=== PATIENT | female | born 1940 | race Caucasian/White ===

== ENCOUNTER 2017-10-18 12:33 | Emergency (ER) | payer MEDICARE ==
--- OUTSIDE RECORDS SUMMARY | 2017-10-18 12:48 | XMS REPORT ---
:1940 External Reference #:[id number] Author Organization [facility] Address [address] [address] Phone [phone] Care Team Providers Name Role Phone Ravin Butler MD Care Team Information Real Estate Investor Unavailable Payers Type Date Identification Numbers Payment Provider Subscriber Commercial Effective: Policy Number: BCBS Medicare [place] 2013 [id number] Group Number: [id number] [address] [address] PayID: [id number] [place] [address] Problems Date Description Provider Status Onset: 12/29/2011 Iron deficiency anemia Ravin Butler MD Active Onset: 12/28/2011 Anemia Ravin Butler MD Active Onset: 12/20/2011 Vitamin D deficiency Ravin Butler MD Active Onset: 06/22/2011 Benign neoplasm of colon Ravin Butler MD Active Onset: 05/27/2008 Depressive disorder Ravin Butler MD Active Onset: 11/20/2007 Localized, 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 Onset: 05/18/2007 Pure hypercholesterolemia Ravin Butler MD Active Onset: 01/22/2007 Rheumatoid arthritis Ravin Butler MD Active Onset: 01/22/2007 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 Onset: 01/22/2007 Gastroesophageal reflux disease Ravin Butler MD Active Onset: 01/22/2007 Obesity Ravin Butler MD Active Onset: 01/22/2007 Benign essential hypertension Ravin Butler MD Active Onset: 04/29/2015 Moderate recurrent major depression Ravin Butler MD Active Social History Type Date Description Comments Marital Status Occupation Retired Nurse ETOH Use Currently consumes alcohol Wine: 2-3, 3d/w Smoking Patient is a former smoker Smoked lightly x 15 years, quit age 40 Daily Caffeine Consumes on average 3 cups of coffee per day General Hx Text Advance directive: HCP packet given 01/16, 01/17 Allergies, Adverse Reactions, Alerts Date Description Reaction Status Severity Comments 05/09/2014 NKDA active Medications Medication Date Status Form Strength Qnty SIG Indications Ordering Provider Tania 01/18/20 Active Soln 125mg/ml 4units inject 1 M06.09 Cathie Basilio Prefill syringe Shmuel ASHRAF Syringe (125 mg) under the skin once a week M06.9 Vitamin B-12 03/11/2016 Active Tablets Sub 500mcg 90tabs 1 by devorah Butler MD every day Biotin 04/29/2015 Active Tablets 5000mcg 1 by Diggerardvandayanna, mouth MD Ravin every day Vitamin 04/29/2015 Active Tablets 1000Unit 90tabs 2 by E55 Luke, D-1000 mouth bid .9 MD Ravin Maximum Strength Bupropion HCL 04/29/2015 Active Tablets ER 300mg 90tabs take one F33 Nidavandayanna, ER (XL) 24HR tablet by .1 MD Ravin mouth every day Ferrous 04/08/2015 Active Tablets 325(65Fe) OTC 1 by D64 Luke, Sulfate mg mouth .9 MD Ravin twice daily w/ food D50.9 Lisinopril-Hydrochlorothiazide 05/22/2014 Active Tablets 20-12.5mg 90tabs take I10 Luke, one MD Ravin tablet by mouth every day 8 Hour Pain Relief 05/02/2012 Active Tablets 650mg 2 po Digiovanna, ER tid prn Ravin Erazo MD arthrit is Omeprazole 05/18/2007 Active Capsules 20mg 90caps use K21. DR Luke every 9 MD Ravin day if needed for heartbu rn Methotrexate Active Tablets 2.5mg take 7 M06. Praful, tablets 9 Shmuel ASHRAF by mouth every week Folic Acid Active Tablets 1000mg 1 by M06. Unknown mouth 9 every day Lidocaine Active Patches 4% apply 1 Praful, patches Shmuel ASHRAF over painful area for 12 hours a day (OTC) Gabapentin Active Capsules 300mg 1 by M06. Praful, mouth 2 9 Shmuel ASHRAF or 3 times a day Amoxicillin 07/21/2017 Hx Tablets 875mg 20tabs 1 by Luke, - mouth MD Ravin 07/31/2017 twice a day for 10 days Benzonatate 07/21/2017 Hx Capsules 200mg 30caps 1 pill Luke, - by MD Ravin 08/20/2017 mouth 3 times a day as needed for cough (swallo w whole) Valacyclovir HCL 01/30/2017 Hx Tablets 1gm 21tabs 1 by R21 Luke, - mouth Nicole, WORM PACKER 02/06/2017 three times a day for 7 days Glucosamine Chondroitin Complex 06/21/2016 Hx Liquid 2 by Luke , Plus MSM Advanced Triple STR - mouth MD Ravin 07/17/2017 every day Doxycycline Hyclate 06/21/2016 Hx Tablets 100mg 14tabs 1 by R05 Luke, - devorah Alicia MD 06/28/2016 twice a day x 7 days (w/ food but not milk) Cephalexin 06/12/2015 Hx Capsules 250mg 21caps 1 pill 595. Ramior, - by Wendy Murphy MD 07/08/2015 mouth 3 times a day for 7 days R30.0 Bupropion HCL 04/08/2015 - Hx Tablets ER 150mg 30tabs 1 by F33.1 Jesseiodella, ER (XL) 04/29/2015 24HR mouth MD Ravin every day Cephalexin 09/22/2014 - Hx Capsules 250mg 21caps 1 pill 595.0 Luke, 09/29/2014 by mouth MD Ravin 3 times a day for 7 days Ferrous 09/15/2014 - Hx Tablets 325(65Fe OTC 1 by 285.9 Luke, Sulfate 04/08/2015 ) mg mouth MD Ravin once daily w/ food 280.9 Sulfamethoxazole/Trimethoprim 09/12/2014 Hx Tablets 800-160mg 10tabs 1 by 595.0 Luke, DS - devorah Alicia MD 09/18/2014 twice a day for 5 days Prednisone 09/11/2014 Hx Tablets 10mg 30tabs 4 782.1 Khan, - pills Tad, DO 11/26/2014 by mouth x 3 days, 3 by mouth x 3 days, 2 by mouth x 3 days, 1 by mouth x 3 days Vitamin D3 Super Strength 05/22/2014 Hx Tablets 2000Unit 1 by 268.9 Lorna Butler MD 11/26/2014 every day Zostavax 05/22/2014 Hx Solution [id number]/0 1 dose Luke, - Rec .65ML MD Ravin 06/01/2014 Vitamin D3 Super Strength 05/09/2014 Hx Tablets 2000Unit 1 by Lorna Butler MD 01/19/2014 every day Lisinopril/Hydrochlorothiazide 11/14/2013 Hx Tablets 20-12.5 30Tabs 1 by Lorna Butler MD 05/21/2014 every day Wellbutrin XL 10/07/2013 Hx Tablets 150mg 30tabs 1 by Luke, - ER 24HR devorah Erazo MD 01/19/2014 every day Nabumetone 05/02/2012 Hx Tablets 500mg 60tabs 1 by Lorna Butler MD 06/12/2015 twice a day (with food) as needed arthtr itis pain Ferrous Sulfate 12/29/2011 Hx Tablets 325(65Fe) 1 po Luke, - mg tiw Ravin Erazo MD 01/19/2014 with food Prednisone Hx Tablets 5mg qd M06.9 Unknown - 09/22/2017 Tylenol Arthritis Pain Hx Tablets 650mg as M15.9 Unknown - ER needed 01/16/2017 pain Naproxen Sodium Hx Capsules 220mg 1 by Unknown - mouth 07/17/2017 q12 hours as needed for pain Immunizations CPT Code Status Date Vaccine Reaction Lot # [id number] Given 01/21/2017 Flulaval Immunization [place] 64471 Given 01/20/2016 Fluzone Highdose Age 65 And KINNEYS Over Preservative & Antibiotic Free 44507 Given 01/07/2015 Fluzone Highdose Age 65 And CRUZ CHOPPER Over Preservative & Antibiotic Free 69923 Given 11/26/2014 Prevnar 13 Pneumococal [id number] Conjugate Vaccine 70161 Given 07/10/2014 Zoster (Zostavax) KINNEYs 12403 Given 01/27/2013 Afluria Or Fluvirin Flu Vac [place]..ACTUALLY Intramuscular DONE 01-26 10150 Given 12/28/2011 Afluria Or Fluvirin Flu Vac Intramuscular 89505 Given 02/02/2011 Afluria Or Fluvirin Flu Vac VIS DATE 10/26/10 Intramuscular 07337 Given 02/04/2010 Afluria Or Fluvirin Flu Vac Intramuscular 97914 Given 03/07/2008 Afluria Or Fluvirin Flu Vac Intramuscular 89630 Given 11/20/2007 Pneumococcal 23 Immunization Adult Or Immunosuppressed Patient 68682 Given 01/22/2007 Afluria Or Fluvirin Flu Vac Intramuscular 08880 Given 01/22/2007 Afluria Or Fluvirin Flu Vac Intramuscular Vital Signs Date Vital Result Comment 09/22/2017 Body Temperature 98.7 F tympanic Weight 174.00 lb Heart Rate 88 /min BP Systolic 104 mmHg BP Diastolic 80 mmHg Respiratory Rate 16 /min Height 61.5 inches 5'1.50" BMI (Body Mass Index) 32.3 kg/m2 08/11/2017 Body Temperature 97.8 F Weight 174.00 lb Heart Rate 66 /min BP Systolic 120 mmHg BP Diastolic 68 mmHg Respiratory Rate 18 /min Height 61.5 inches 5'1.50" O2 % BldC Oximetry 97 % Ra BMI (Body Mass Index) 32.3 kg/m2 07/17/2017 Body Temperature 97.4 F Weight 174.00 lb Heart Rate 70 /min BP Systolic 120 mmHg BP Diastolic 70 mmHg Respiratory Rate 18 /min Height 61.5 inches 5'1.50" BMI (Body Mass Index) 32.3 kg/m2 01/30/2017 Body Temperature 97.7 F Weight 174.00 lb with shoes on Heart Rate 92 /min BP Systolic 108 mmHg BP Diastolic 70 mmHg Height 61.5 inches 5'1.50" BMI (Body Mass Index) 32.3 kg/m2 01/16/2017 Weight 170.00 lb Heart Rate 74 /min BP Systolic 120 mmHg BP Diastolic 70 mmHg Respiratory Rate 18 /min Height 61.5 inches 5'1.50" BMI (Body Mass Index) 31.6 kg/m2 09/27/2016 Weight 174.00 lb Heart Rate 78 /min BP Systolic Recheck 132 mmHg BP Diastolic Recheck 72 mmHg BP Systolic Sitting 124 mmHg BP Diastolic Sitting 78 mmHg BP Systolic Standing 110 mmHg BP Diastolic Standing 72 mmHg Respiratory Rate 17 /min Height 61.5 inches 5'1.50" BMI (Body Mass Index) 32.3 kg/m2 07/08/2016 Weight 165.00 lb Heart Rate 84 /min BP Systolic 120 mmHg BP Diastolic 76 mmHg Respiratory Rate 18 /min Height 61.5 inches 5'1.50" BMI (Body Mass Index) 30.7 kg/m2 06/21/2016 Body Temperature 98.5 F Weight 168.00 lb Heart Rate 92 /min BP Systolic 120 mmHg BP Diastolic 70 mmHg Respiratory Rate 18 /min Height 61.5 inches 5'1.50" O2 % BldC Oximetry 98 % Ra BMI (Body Mass Index) 31.2 kg/m2 03/11/2016 Body Temperature 98.2 F Weight 158.00 lb Heart Rate 98 /min BP Systolic 120 mmHg BP Diastolic 70 mmHg Respiratory Rate 18 /min Height 61.5 inches 5'1.50" O2 % BldC Oximetry 97 % Ra BMI (Body Mass Index) 29.4 kg/m2 01/07/2016 Weight 158.00 lb Heart Rate 74 /min BP Systolic 120 mmHg BP Diastolic 72 mmHg Respiratory Rate 18 /min Height 61.5 inches 5'1.50" BMI (Body Mass Index) 29.4 kg/m2 07/08/2015 Weight 164.00 lb Heart Rate 74 /min BP Systolic 120 mmHg BP Diastolic 80 mmHg Height 62 inches 5'2" BMI (Body Mass Index) 30.0 kg/m2 06/12/2015 Body Temperature 98.1 F Weight 165.00 lb Heart Rate 64 /min BP Systolic 118 mmHg BP Diastolic 60 mmHg Respiratory Rate 18 /min Height 62 inches 5'2" 06/16 BMI (Body Mass Index) 30.2 kg/m2 04/29/2015 Weight 168.00 lb Heart Rate 120 /min BP Systolic 100 mmHg BP Diastolic 60 mmHg Respiratory Rate 18 /min Height 61.6 inches 5'1.60" BMI (Body Mass Index) 31.1 kg/m2 04/08/2015 Weight 173.00 lb Heart Rate 80 /min BP Systolic 102 mmHg BP Diastolic 70 mmHg Respiratory Rate 18 /min Height 61.6 inches 5'1.60" BMI (Body Mass Index) 32.1 kg/m2 11/26/2014 Weight 171.12 lb Heart Rate 84 /min BP Systolic 102 mmHg BP Diastolic 70 mmHg Respiratory Rate 18 /min Height 61.6 inches 5'1.60" BMI (Body Mass Index) 31.7 kg/m2 09/22/2014 Body Temperature 98.6 F Weight 170.50 lb Heart Rate 84 /min BP Systolic 108 mmHg L/Reg BP Diastolic 64 mmHg L/Reg Respiratory Rate 20 /min Height 61.6 inches 5'1.60" BMI (Body Mass Index) 31.6 kg/m2 09/11/2014 Body Temperature 98.4 F Weight 174.00 lb Heart Rate 68 /min BP Systolic 126 mmHg BP Diastolic 72 mmHg Respiratory Rate 18 /min Height 61.6 inches 5'1.60" BMI (Body Mass Index) 32.2 kg/m2 05/22/2014 Weight 173.00 lb Up 3# Heart Rate 92 /min BP Systolic 122 mmHg L/Reg BP Diastolic 78 mmHg L/Reg Respiratory Rate 21 /min Height 61.6 inches 5'1.60" BMI (Body Mass Index) 32.1 kg/m2 02/07/2014 Weight 170.00 lb Heart Rate 78 /min BP Systolic 126 mmHg BP Diastolic 86 mmHg Respiratory Rate 18 /min Height 61.6 inches 5'1.60" O2 % BldC Oximetry 98 % Ra 11/14/2013 Weight 170.31 lb Heart Rate 84 /min BP Systolic 128 mmHg L/Reg BP Diastolic 72 mmHg L/Reg Respiratory Rate 19 /min Height 61.6 inches 5'1.60" 08/20/2013 Weight 171.38 lb Heart Rate 84 /min BP Systolic 128 mmHg BP Diastolic 80 mmHg Respiratory Rate 18 /min Height 61.6 inches 5'1.60" 05/17/2013 Heart Rate 84 /min BP Systolic 124 mmHg BP Diastolic 68 mmHg Respiratory Rate 18 /min Height 61.6 inches 5'1.60" Results Test Date Test Result H/L Range Note CBC Auto Diff 08/08/2017 Abs Basophils 0.1 10^3/uL 0-0.2 Abs Eosinophils 0.1 10^3/uL 0-0.6 Abs Lymphocytes 2.0 10^3/uL 1.0-4.8 Abs Monocytes 1.0 10^3/uL High 0-0.8 Abs Neutrophils 6.7 10^3/uL 1.5-7.7 Abs Nucleated RBC 0 10^3/uL Basophil % 0.8 % 0-2 Eosinophil % 1.1 % 0-6 Granulocyte % 67.8 % 38-83 Hematocrit 39 % 35-47 Hemoglobin 13.1 g/dL 12.0-16.0 Lymphocyte % 20.7 % Low 25-47 Mean Corpuscular HGB Conc 34 g/dL 31-36 Mean Corpuscular Hemoglobin 31 pg 27-31 Mean Corpuscular Volume 93 fL 80-97 Mean Platelet Volume 8.7 um3 7.4-10.4 Monocyte % 9.6 % High 0-7 Nucleated Red Blood Cells % 0.1 1 Platelet Count 388 10^3/uL 150-450 Red Blood Count 4.17 10^6/uL 4.0-5.4 Red Cell Distribution Width 15 % 10.5-15 White Blood Count 9.9 10^3/uL 3.5-10.8 Laboratory test finding 08/08/2017 Creatinine 0.92 mg/dL 0.51-0.95 Glucose 101 mg/dL High 70-100 Potassium 4.3 mmol/L 3.5-5.0 Blood Urea Nitrogen 18 mg/dL 6-24 Alt 17 U/L 7-52 Ast 18 U/L 13-39 CMV Igg/Igm 08/02/2017 Cytomegalovirus IgG Antibody Positive Negative 1 Cytomegalovirus IgM Antibody Negative Negative Iron & Iron Binding Capacity 08/02/2017 % Iron Saturation 29 % 15-55 Iron 101 g/dL 50-212 Total Iron Binding Capacity 354 g/dL 250-450 Transferrin 253 mg/dL 203-362 Unsaturated Iron Binding 253 g/dL Basic (BMP) 07/10/2017 Sodium 142 mmol/L 135-146 2, 3 Potassium 4.3 mmol/L 3.5-5.2 2 Chloride# 105 mmol/L 97-110 2, 4 Carbon Dioxide 28 mmol/L 24-34 2 Glucose 116 mg/dL High 70-105 2 BUN 15 mg/dL 6-26 2 Creatinine 0.9 mg/dL 0.5-1.4 2 Calcium 9.5 mg/dL 8.5-10.2 2 Non Rosenda Egfr 60 Low >60 2, 5 Rosenda Egfr >60 >60 2, 6 Anion Gap 9 mmol/L 5-15 2, 7 Lipid Treatment 07/10/2017 Cholesterol 228 mg/dL High 50-199 2 Triglycerides 183 mg/dL 30-200 2 HDL 76 mg/dL 35-85 2, 8 Chol/ HDL Ratio 3.0 ratio Low 3.7-5.6 2 VLDL 37 mg/dL High 2-29 2 LDL (Calc) 116 mg/dL High 20-99 2, 9 Alt 16 U/L 3-42 2 Ast 15 U/L 8-42 2 Laboratory test finding 07/10/2017 Vitamin D 25 Hydroxy 37 ng/mL 30-100 2, 10 Laboratory test finding 07/10/2017 Ferritin 19.9 ng/ml 11.0-306.0 2 CBC With Auto Diff 07/10/2017 WBC 7.0 K/uL 4.1-11.0 2 RBC 4.35 M/uL 4.00-5.40 2 Hemoglobin 13.5 gm/dL 12.0-16.0 2 Hematocrit 40.9 % 36.0-47.0 2 MCV 94.0 fL 80.0-97.0 2 MCH 31.1 pg 27.0-32.0 2 MCHC 33.1 g/dL 32.0-36.0 2 RDW 16.7 % High 11.5-14.5 2 PLT Count 371 K/ul 140-400 2 MPV 8.4 FL 7.1-10.7 2 Neutrophil 59.5 % 35.0-75.0 2 Lymphocyte 28.5 % 16.0-52.0 2 Monocyte 8.8 % 2.0-10.0 2 Eosinophil 2.5 % 0.0-5.0 2 Basophil 0.7 % 0.0-4.0 2 Abs Neutrophils 4.2 K/uL 2.1-8.0 2 Abs Lymphocytes 2.0 K/uL 0.8-5.5 2 Abs Monocytes 0.6 K/uL 0.1-1.0 2 Abs Eosinophils 0.2 K/uL 0.0-0.5 2 Abs Basophils 0.0 K/uL 0.0-0.3 2 CBC Auto Diff 03/22/2017 Abs Basophils 0.1 10^3/uL 0-0.2 11 Abs Eosinophils 0.1 10^3/uL 0-0.6 11 Abs Lymphocytes 2.2 10^3/uL 1.0-4.8 11 Abs Monocytes 0.8 10^3/uL 0-0.8 11 Abs Neutrophils 4.4 10^3/uL 1.5-7.7 11 Abs Nucleated RBC 0.01 10^3/uL 11 Basophil % 1.0 % 0-2 11 Eosinophil % 1.6 % 0-6 11 Granulocyte % 57.6 % 38-83 11 Hematocrit 40 % 35-47 11 Hemoglobin 13.1 g/dL 12.0-16.0 11 Lymphocyte % 29.2 % 25-47 11 Mean Corpuscular HGB Conc 33 g/dL 31-36 11 Mean Corpuscular Hemoglobin 30 pg 27-31 11 Mean Corpuscular Volume 93 fL 80-97 11 Mean Platelet Volume 8 um3 7.4-10.4 11 Monocyte % 10.6 % High 1-9 11 Nucleated Red Blood Cells % 0.1 1 11 Platelet Count 384 10^3/uL 150-450 11 Red Blood Count 4.32 10^6/uL 4.0-5.4 11 Red Cell Distribution Width 16 % High 10.5-15 11 White Blood Count 7.7 10^3/uL 3.5-10.8 11 Laboratory test finding 03/22/2017 Albumin 4.2 g/dL 3.2-5.2 11 Albumin/Globulin Ratio 2.0 1 1-3 11 Alkaline Phosphatase 77 U/L 34-104 11 Alt 18 U/L 7-52 11 Anion Gap 8 mmol/L 2-11 11 Ast 21 U/L 13-39 11 BUN/Creatinine Ratio 22.7 1 High 8-20 11 Blood Urea Nitrogen 20 mg/dL 6-24 11 C Reactive Protein 3.22 mg/L < 5.00 11, 12 Calcium 9.9 mg/dL 8.6-10.3 11 Chloride 104 mmol/L 101-111 11 Co2 Carbon Dioxide 27 mmol/L 22-32 11 Creatinine 0.88 mg/dL 0.51-0.95 11 Egfr 80.3 1 >60 11 Egfr Non- 62.5 1 >60 11 Erythrocyte Sed Rate 25 mm/Hr 0-40 11 Globulin 2.1 g/dL 2-4 11 Glucose 100 mg/dL 70-100 11 Potassium 4.2 mmol/L 3.5-5.0 11 Sodium 139 mmol/L 133-145 11 Total Bilirubin 0.30 mg/dL 0.2-1.0 11 Total Protein 6.3 g/dL Low 6.4-8.9 11 Laboratory test finding 01/10/2017 Albumin 3.8 g/dL 3.2-5.2 Alkaline Phosphatase 78 U/L 34-104 Alt 16 U/L 7-52 Ast 18 U/L 13-39 Blood Urea Nitrogen 10 mg/dL 6-24 C Reactive Protein 8.68 mg/L High < 5.00 13 Calcium 9.3 mg/dL 8.6-10.3 Chloride 105 mmol/L 101-111 Co2 Carbon Dioxide 26 mmol/L 22-32 Creatinine 0.77 mg/dL 0.51-0.95 Egfr Non- 72.9 1 >60 Erythrocyte Sed Rate 40 mm/Hr 0-40 Globulin 2.1 g/dL 2-4 Glucose 94 mg/dL 70-100 Potassium 4.1 mmol/L 3.5-5.0 Sodium 138 mmol/L 133-145 14 Total Bilirubin 0.20 mg/dL 0.2-1.0 Total Protein 5.9 g/dL Low 6.4-8.9 CBC Auto Diff 01/10/2017 Abs Basophils 0.1 10^3/uL 0-0.2 Abs Eosinophils 0.1 10^3/uL 0-0.6 Abs Lymphocytes 1.8 10^3/uL 1.0-4.8 Abs Monocytes 0.8 10^3/uL 0-0.8 Abs Neutrophils 5.9 10^3/uL 1.5-7.7 Abs Nucleated RBC 0 10^3/uL Basophil % 1.3 % 0-2 Eosinophil % 1.2 % 0-6 Granulocyte % 67.7 % 38-83 Hematocrit 31 % Low 35-47 Hemoglobin 10.4 g/dL Low 12.0-16.0 Lymphocyte % 21.1 % Low 25-47 Mean Corpuscular HGB Conc 33 g/dL 31-36 Mean Corpuscular Hemoglobin 30 pg 27-31 Mean Corpuscular Volume 91 fL 80-97 Mean Platelet Volume 8 um3 7.4-10.4 Monocyte % 8.7 % 1-9 Nucleated Red Blood Cells % 0 1 Platelet Count 398 10^3/uL 150-450 Red Blood Count 3.46 10^6/uL Low 4.0-5.4 Red Cell Distribution Width 18 % High 10.5-15 White Blood Count 8.7 10^3/uL 3.5-10.8 Iron & Iron Binding Capacity 01/10/2017 % Iron Saturation 6 % Low 15-55 Iron 21 g/dL Low 50-212 Total Iron Binding Capacity 365 g/dL 250-450 Unsaturated Iron Binding 344 g/dL Basic (BMP) 01/10/2017 Sodium 143 mmol/L 135-146 15, 16 Potassium 4.2 mmol/L 3.5-5.2 15 Chloride# 107 mmol/L 97-110 15, 17 Carbon Dioxide 26 mmol/L 24-34 15 Glucose 92 mg/dL 70-105 15 Creatinine 0.8 mg/dL 0.5-1.4 15 Calcium 9.2 mg/dL 8.5-10.2 15 Non Rosenda Egfr >60 >60 15, 18 Rosenda Egfr >60 >60 15, 19 Anion Gap 10 mmol/L 7-16 15, 20 BUN 11 mg/dL 6-26 15 Lipid Treatment 01/10/2017 Cholesterol 195 mg/dL 50-199 15 Triglycerides 165 mg/dL 30-200 15 HDL 70 mg/dL 35-85 15, 21 Chol/ HDL Ratio 2.8 ratio Low 3.7-5.6 15 VLDL 33 mg/dL High 2-29 15 LDL (Calc) 92 mg/dL 20-99 15, 22 Alt 15 U/L 3-42 15 Ast 16 U/L 8-42 15 Laboratory test finding 01/10/2017 Vit D25oh 44 ng/mL 31-100 15 CBC With Auto Diff 01/10/2017 WBC 8.5 K/uL 4.1-11.0 15 RBC 3.37 M/uL Low 4.00-5.40 15 Hemoglobin 10.3 gm/dL Low 12.0-16.0 15 Hematocrit 31.3 % Low 36.0-47.0 15 MCV 92.8 fL 80.0-97.0 15 MCH 30.5 pg 27.0-32.0 15 MCHC 32.9 g/dL 32.0-36.0 15 RDW 18.0 % High 11.5-14.5 15 PLT Count 382 K/ul 140-400 15 MPV 7.9 FL 7.1-10.7 15 Neutrophil 64.2 % 35.0-75.0 15 Lymphocyte 23.6 % 16.0-52.0 15 Monocyte 9.9 % 2.0-10.0 15 Eosinophil 1.7 % 0.0-5.0 15 Basophil 0.6 % 0.0-4.0 15 Abs Neutrophils 5.5 K/uL 2.1-8.0 15 Abs Lymphocytes 2.0 K/uL 0.8-5.5 15 Abs Monocytes 0.8 K/uL 0.1-1.0 15 Abs Eosinophils 0.1 K/uL 0.0-0.5 15 Abs Basophils 0.1 K/uL 0.0-0.3 15 Laboratory test finding 01/10/2017 Ferritin 10.2 ng/ml Low 11.0-306.0 15 TSH 0.84 uIU/mL 0.35-4.94 15 Basic (BMP) 09/27/2016 Sodium 144 mmol/L 135-146 23 Potassium 4.1 mmol/L 3.5-5.2 Chloride# 104 mmol/L 97-110 24 Carbon Dioxide 30 mmol/L 24-34 Glucose 88 mg/dL 70-105 BUN 20 mg/dL 6-26 Creatinine 0.7 mg/dL 0.5-1.4 Calcium 9.7 mg/dL 8.5-10.2 Non Rosenda Egfr >60 >60 25 Rosenda Egfr >60 >60 26 Anion Gap 14 mmol/L 7-16 27 CBC With Auto Diff 09/27/2016 WBC 7.6 K/uL 4.1-11.0 RBC 3.59 M/uL Low 4.00-5.40 Hemoglobin 10.3 gm/dL Low 12.0-16.0 Hematocrit 32.0 % Low 36.0-47.0 MCV 89.2 fL 80.0-97.0 MCH 28.7 pg 27.0-32.0 MCHC 32.2 g/dL 32.0-36.0 RDW 17.0 % High 11.5-14.5 PLT Count 436 K/ul High 140-400 Neutrophil 60.4 % 35.0-75.0 Lymphocyte 25.9 % 16.0-52.0 Monocyte 10.9 % High 2.0-10.0 Eosinophil 2.0 % 0.0-5.0 Basophil 0.8 % 0.0-4.0 Abs Neutrophils 4.6 K/uL 2.1-8.0 Abs Lymphocytes 2.0 K/uL 0.8-5.5 Abs Monocytes 0.8 K/uL 0.1-1.0 Abs Eosinophils 0.2 K/uL 0.0-0.5 Abs Basophils 0.1 K/uL 0.0-0.3 Basic (BMP) 07/01/2016 Sodium 142 mmol/L 135-146 28, 29 Potassium 4.2 mmol/L 3.5-5.2 28 Chloride# 104 mmol/L 97-110 28, 30 Carbon Dioxide 28 mmol/L 24-34 28 Glucose 96 mg/dL 70-105 28 BUN 21 mg/dL 6-26 28 Creatinine 0.9 mg/dL 0.5-1.4 28 Calcium 9.7 mg/dL 8.5-10.2 28 Non Rosenda Egfr >60 >60 28, 31 Rosenda Egfr >60 >60 28, 32 Anion Gap 14 mmol/L 7-16 28, 33 Laboratory test finding 07/01/2016 TSH 1.12 uIU/mL 0.35-4.94 28 Lipid Treatment 07/01/2016 Cholesterol 235 mg/dL High 50-199 28 Triglycerides 164 mg/dL 30-200 28 HDL 76 mg/dL 35-85 28, 34 Chol/ HDL Ratio 3.1 ratio Low 3.7-5.6 28 VLDL 33 mg/dL High 2-29 28 LDL (Calc) 126 mg/dL High 20-99 28, 35 Alt 13 U/L 3-42 28 Ast 19 U/L 8-42 28 Laboratory test finding 07/01/2016 Vit D,25 Hydroxy 39 ng/mL 31-100 28 CBC With Auto Diff 07/01/2016 WBC 6.9 K/uL 4.1-11.0 28 RBC 3.87 M/uL Low 4.00-5.40 28 Hemoglobin 11.1 gm/dL Low 12.0-16.0 28 Hematocrit 34.6 % Low 36.0-47.0 28 MCV 89.6 fL 80.0-97.0 28 MCH 28.7 pg 27.0-32.0 28 MCHC 32.1 g/dL 32.0-36.0 28 RDW 17.6 % High 11.5-14.5 28 PLT Count 387 K/ul 140-400 28 Neutrophil 63.1 % 35.0-75.0 28 Lymphocyte 22.5 % 16.0-52.0 28 Monocyte 11.3 % High 2.0-10.0 28 Eosinophil 1.8 % 0.0-5.0 28 Basophil 1.3 % 0.0-4.0 28 Abs Neutrophils 4.4 K/uL 2.1-8.0 28 Abs Lymphocytes 1.6 K/uL 0.8-5.5 28 Abs Monocytes 0.8 K/uL 0.1-1.0 28 Abs Eosinophils 0.1 K/uL 0.0-0.5 28 Abs Basophils 0.1 K/uL 0.0-0.3 28 Laboratory test finding 07/01/2016 Ferritin 8.0 ng/ml Low 11.0-306.0 28 Vitamin B12 1285 pg/mL High 180-914 28 Basic (BMP) 12/31/2015 Sodium 142 mmol/L 134-142 36 Potassium 4.3 mmol/L 3.5-5.2 36 Chloride 104 mmol/L 97-109 36 Carbon Dioxide 30 mmol/L 24-34 36 Glucose 80 mg/dL 70-105 36 BUN 16 mg/dL 6-26 36 Creatinine 0.9 mg/dL 0.5-1.4 36 Calcium 9.4 mg/dL 8.5-10.2 36 Anion Gap 12 mmol/L 6-14 36 Non Rosenda Egfr >60 >60 36, 37 Rosenda Egfr >60 >60 36, 38 Lipid Treatment 12/31/2015 Cholesterol 237 mg/dL High 50-199 36 Triglycerides 182 mg/dL 30-200 36 HDL 91 mg/dL High 35-85 36, 39 Chol/ HDL Ratio 2.6 ratio Low 3.7-5.6 36 VLDL 36 mg/dL High 2-29 36 LDL (Calc) 110 mg/dL High 20-99 36, 40 Alt 19 U/L 3-42 36 Ast 15 U/L 8-42 36 Laboratory test finding 12/31/2015 Vit D,25 Hydroxy 46 ng/mL 31-100 36 CBC With Auto Diff 07/01/2015 WBC 7.2 K/uL 4.1-11.0 41 RBC 4.76 M/uL 4.00-5.40 41 Hemoglobin 13.1 gm/dL 12.0-16.0 41 Hematocrit 41.3 % 36.0-47.0 41 MCV 86.6 fL 80.0-97.0 41 MCH 27.4 pg 27.0-32.0 41 MCHC 31.7 g/dL Low 32.0-36.0 41 RDW 19.8 % High 11.5-14.5 41 PLT Count 411 K/ul High 140-400 41 Neutrophil 61.9 % 35.0-75.0 41 Lymphocyte 25.7 % 16.0-52.0 41 Monocyte 9.4 % 2.0-10.0 41 Eosinophil 2.3 % 0.0-5.0 41 Basophil 0.7 % 0.0-4.0 41 Abs Neutrophils 4.5 K/uL 2.1-8.0 41 Abs Lymphocytes 1.9 K/uL 0.8-5.5 41 Abmon 0.7 K/uL 0.1-1.0 41 Abs Eosinophils 0.2 K/uL 0.0-0.5 41 Abs Basophils 0.0 K/uL 0.0-0.3 41 Laboratory test finding 07/01/2015 Ferritin 11.5 ng/ml 11.0-306.0 41 Basic (BMP) 07/01/2015 Sodium 142 mmol/L 134-142 41 Potassium 4.5 mmol/L 3.5-5.2 41 Chloride 104 mmol/L 97-109 41 Carbon Dioxide 29 mmol/L 24-34 41 Glucose 100 mg/dL 70-105 41 BUN 14 mg/dL 6-26 41 Creatinine 0.8 mg/dL 0.5-1.4 41 Calcium 9.7 mg/dL 8.5-10.2 41 Anion Gap 14 mmol/L 6-14 41 Non Rosenda Egfr >60 >60 41, 42 Rosenda Egfr >60 >60 41, 43 Lipid Treatment 07/01/2015 Cholesterol 223 mg/dL High 50-199 41 Triglycerides 215 mg/dL High 30-200 41 HDL 84 mg/dL 35-85 41, 44 Chol/ HDL Ratio 2.7 ratio Low 3.7-5.6 41 VLDL 43 mg/dL High 2-29 41 LDL (Calc) 96 mg/dL 20-99 41, 45 Alt 16 U/L 3-42 41 Ast 16 U/L 8-42 41 Laboratory test 07/01/2015 Vit D,25 Hydroxy 40 ng/mL 31-100 41 finding Laboratory test 06/12/2015 Urine Culture Microbiology res <SEE 46 finding NOTE> BMP (Basic) 03/31/2015 Glucose 103 mg/dL 74-106 BUN 13 mg/dL 7-18 Creatinine 0.8 mg/dL 0.6-1.3 Glom Filtration Rate, Estimate >60 mL/min >60 If >60 mL/min >60 47 BUN/Creat 16.2 ratio Sodium 138 mmol/L 136-145 Potassium 3.8 mmol/L 3.5-5.1 Chloride 104 mmol/L 98-107 Carbon Dioxide 24 mmol/L 21-32 Anion Gap 10 mEq/L 8-16 Calcium 8.4 mg/dL Low 8.5-10.1 CBC W/Automated Diff 03/31/2015 White Blood Count 7.1 K/uL 3.1-10.7 Red Blood Count 3.91 M/uL 3.90-5.40 Hemoglobin 8.4 gm/dL Low 11.6-15.8 Hematocrit 28.5 % Low 36.0-46.1 Mean Cell Volume 72.9 fl Low 80.9-99.0 Mean Corpuscular HGB 21.5 pg Low 25.9-32.7 Mean Corpuscular HGB Conc 29.5 g/dL Low 30.8-34.3 Platelet Count 486 K/uL High 155-360 Red Cell Distri Width SD 55.2 fl High 3-47 Red Cell Distri Width %CV 21.6 % High 11.7-14.4 Mean Platelet Volume 9.6 fL 8.9-12.4 Neut% 62.8 % 40.4-72.8 Lymph % 26.0 % 17.0-46.1 [place] % 8.8 % 4.3-13.2 Eo% 2.0 % 0.0-6.6 Bas% 0.4 % 0.0-1.1 Neut# 4.47 K/uL 1.0-7.0 Lymph # 1.85 K/uL 1.8-7.0 [place] # 0.63 K/uL 0.3-0.9 Eos # 0.14 K/uL 0.0-0.5 Baso # 0.03 K/uL 0.0-0.1 LDL Cholesterol Profile 03/31/2015 Cholesterol 247 mg/dL High <200 48 Triglycerides 357 mg/dL High <150 49 HDL Cholesterol 68 mg/dL >40 50 LDL-Cholesterol 108 mg/dL < 100 51 Laboratory test finding 03/31/2015 Magnesium 1.9 mg/dL 1.8-2.4 CBC With Auto Diff 03/31/2015 White Blood Count 7.1 K/uL 3.1-10.7 Red Blood Count 3.91 M/uL 3.90-5.40 Hemoglobin 8.4 gm/dL Low 11.6-15.8 Hematocrit 28.5 % Low 36.0-46.1 Mean Cell Volume 72.9 fl Low 80.9-99.0 Mean Corpuscular HGB 21.5 pg Low 25.9-32.7 Mean Corpuscular HGB Conc 29.5 g/dL Low 30.8-34.3 Platelet Count 486 K/uL High 155-360 Red Cell Distri Width SD 55.2 fl High 3-47 Red Cell Distri Width %CV 21.6 % High 11.7-14.4 Mean Platelet Volume 9.6 fL 8.9-12.4 Neut% 62.8 % 40.4-72.8 Lymph % 26.0 % 17.0-46.1 [place] % 8.8 % 4.3-13.2 Eo% 2.0 % 0.0-6.6 Bas% 0.4 % 0.0-1.1 Neut# 4.47 K/uL 1.0-7.0 Lymph # 1.85 K/uL 1.8-7.0 [place] # 0.63 K/uL 0.3-0.9 Eos # 0.14 K/uL 0.0-0.5 Baso # 0.03 K/uL 0.0-0.1 Laboratory test finding 03/31/2015 Ferritin 4 ng/mL Low 8-252 Magnesium 1.9 mg/dL 1.8-2.4 Liver Function Tests 03/31/2015 Total Protein 6.8 g/dL 6.4-8.2 Albumin 3.4 g/dL 3.4-5.0 Globulin 3.4 g/dL 1.9-4.3 Alb/Glob 1.0 ratio Bilirubin,Total 0.3 mg/dL 0.2-1.0 Bilirubin,Direct < 0.1 mg/dL 0.0-0.2 Bilirubin,Indirect 0.2 mg/dL 0.0-0.9 Sgot/Ast 16 U/L 15-37 SGPT/Alt 24 U/L 12-78 Alkaline Phosphatase 94 U/L 45-117 Basic Metabolic Panel 03/31/2015 Glucose 103 mg/dL 74-106 BUN 13 mg/dL 7-18 Creatinine 0.8 mg/dL 0.6-1.3 Glom Filtration Rate, Estimate >60 mL/min >60 If >60 mL/min >60 52 BUN/Creat 16.2 ratio Sodium 138 mmol/L 136-145 Potassium 3.8 mmol/L 3.5-5.1 Chloride 104 mmol/L 98-107 Carbon Dioxide 24 mmol/L 21-32 Anion Gap 10 mEq/L 8-16 Calcium 8.4 mg/dL Low 8.5-10.1 Liver Function Tests 03/31/2015 Total Protein 6.8 g/dL 6.4-8.2 Albumin 3.4 g/dL 3.4-5.0 Globulin 3.4 g/dL 1.9-4.3 Alb/Glob 1.0 ratio Bilirubin,Total 0.3 mg/dL 0.2-1.0 Bilirubin,Direct < 0.1 mg/dL 0.0-0.2 Bilirubin,Indirect 0.2 mg/dL 0.0-0.9 Sgot/Ast 16 U/L 15-37 SGPT/Alt 24 U/L 12-78 Alkaline Phosphatase 94 U/L 45-117 Laboratory test finding 03/31/2015 Ferritin 4 ng/mL Low 8-252 LDL Cholesterol Profile 03/31/2015 Cholesterol 247 mg/dL High <200 53 Triglycerides 357 mg/dL High <150 54 HDL Cholesterol 68 mg/dL >40 55 LDL-Cholesterol 108 mg/dL < 100 56 Lipid Treatment 11/19/2014 Cholesterol 228 mg/dL High 50-199 57 Triglycerides 153 mg/dL 30-200 57 HDL 67 mg/dL 35-85 57, 58 Chol/ HDL Ratio 3.4 ratio Low 3.7-5.6 57 VLDL 31 mg/dL High 2-29 57 LDL (Calc) 130 mg/dL High 20-99 57, 59 Alt 12 U/L 3-42 57 Ast 14 U/L 8-42 57 Basic (BMP) 11/19/2014 Sodium 140 mmol/L 134-142 57 Potassium 4.5 mmol/L 3.5-5.2 57 Chloride 105 mmol/L 97-109 57 Carbon Dioxide 26 mmol/L 24-34 57 Glucose 105 mg/dL 70-105 57 BUN 16 mg/dL 6-26 57 Creatinine 0.7 mg/dL 0.5-1.4 57 Calcium 9.7 mg/dL 8.5-10.2 57 Anion Gap 14 mmol/L 6-14 57 Non Rosenda Egfr >60 >60 57, 60 Rosenda Egfr >60 >60 57, 61 Laboratory test finding 11/19/2014 Magnesium 2.0 mg/dL 1.5-2.7 57 CBC With Auto Diff 11/19/2014 WBC 6.6 K/uL 4.1-11.0 57 RBC 4.15 M/uL 4.00-5.40 57 Hemoglobin 9.9 gm/dL Low 12.0-16.0 57 Hematocrit 31.3 % Low 36.0-47.0 57 MCV 75.4 fL Low 80.0-97.0 57 MCH 23.9 pg Low 27.0-32.0 57 MCHC 31.6 g/dL Low 32.0-36.0 57 RDW 24.6 % High 11.5-14.5 57 PLT Count 373 K/ul 140-400 57 Neutrophil 59.9 % 35.0-75.0 57 Lymphocyte 28.1 % 16.0-52.0 57 Monocyte 9.1 % 2.0-10.0 57 Eosinophil 2.2 % 0.0-5.0 57 Basophil 0.7 % 0.0-4.0 57 Abs Neutrophils 4.0 K/uL 2.1-8.0 57 Abs Lymphocytes 1.9 K/uL 0.8-5.5 57 Abmon 0.6 K/uL 0.1-1.0 57 Abs Eosinophils 0.1 K/uL 0.0-0.5 57 Abs Basophils 0.0 K/uL 0.0-0.3 57 Laboratory test finding 11/19/2014 Ferritin 4.1 ng/ml Low 11.0-306.0 57 Vitamin B12 368 pg/mL 180-914 57 Laboratory test 09/22/2014 Urine Culture Microbiology res <SEE 62 finding NOTE> CBC With Auto Diff 09/11/2014 WBC 8.6 K/uL 4.1-11.0 RBC 4.29 M/uL 4.00-5.40 Hemoglobin 8.9 gm/dL Low 12.0-16.0 Hematocrit 29.3 % Low 36.0-47.0 MCV 68.2 fL Low 80.0-97.0 MCH 20.8 pg Low 27.0-32.0 MCHC 30.5 g/dL Low 32.0-36.0 RDW 21.8 % High 11.5-14.5 PLT Count 464 K/ul High 140-400 Neutrophil 72.4 % 35.0-75.0 Lymphocyte 17.5 % 16.0-52.0 Monocyte 8.3 % 2.0-10.0 Eosinophil 1.0 % 0.0-5.0 Basophil 0.8 % 0.0-4.0 Abs Neutrophils 6.2 K/uL 2.1-8.0 Abs Lymphocytes 1.5 K/uL 0.8-5.5 Abmon 0.7 K/uL 0.1-1.0 Abs Eosinophils 0.1 K/uL 0.0-0.5 Abs Basophils 0.1 K/uL 0.0-0.3 Laboratory test finding 09/11/2014 Esr 36 mm/hr High 0-20 Comprehensive Metabolic (CMP) 09/11/2014 Sodium 137 mmol/L 134-142 Potassium 4.7 mmol/L 3.5-5.2 Chloride 102 mmol/L 97-109 Carbon Dioxide 26 mmol/L 24-34 Glucose 105 mg/dL 70-105 BUN 22 mg/dL 6-26 Creatinine 0.8 mg/dL 0.5-1.4 Calcium 9.4 mg/dL 8.5-10.2 Total Protein 6.7 g/dL 6.0-8.0 Albumin 4.3 g/dL 3.6-4.9 Globulin 2.4 g/dL 2.0-3.5 A/G Ratio 1.8 Ratio 1.0-2.2 Total Bilirubin 0.2 mg/dL 0.1-1.3 Alkaline Phosphatase 101 U/L 24-140 Alt 11 U/L 3-42 Ast 15 U/L 8-42 Anion Gap 14 mmol/L 6-14 Rosenda Egfr >60 >60 63 Non Rosenda Egfr >60 >60 64 Laboratory test finding 09/11/2014 Urine Culture Microbiology res <SEE 65 NOTE> Basic (BMP) 05/15/2014 Sodium 138 mmol/L 134-142 66 Potassium 4.7 mmol/L 3.5-5.2 66 Chloride 103 mmol/L 97-109 66 Carbon Dioxide 26 mmol/L 24-34 66 Glucose 106 mg/dL High 70-105 66 BUN 18 mg/dL 6-26 66 Creatinine 0.8 mg/dL 0.5-1.4 66 Calcium 9.8 mg/dL 8.5-10.2 66 Anion Gap 14 mmol/L 6-14 66 Non Rosenda Egfr >60 >60 66, 67 Rosenda Egfr >60 >60 66, 68 CBC With Auto Diff 05/15/2014 WBC 6.9 K/uL 4.1-11.0 66 RBC 4.51 M/uL 4.00-5.40 66 Hemoglobin 9.3 gm/dL Low 12.0-16.0 66 Hematocrit 30.6 % Low 36.0-47.0 66 MCV 67.9 fL Low 80.0-97.0 66 MCH 20.6 pg Low 27.0-32.0 66 MCHC 30.4 g/dL Low 32.0-36.0 66 RDW 19.8 % High 11.5-14.5 66 PLT Count 481 K/ul High 140-400 66 Neutrophil 55.3 % 35.0-75.0 66 Lymphocyte 33.1 % 16.0-52.0 66 Monocyte 8.3 % 2.0-10.0 66 Eosinophil 2.0 % 0.0-5.0 66 Basophil 1.3 % 0.0-4.0 66 Abs Neutrophils 3.8 K/uL 2.1-8.0 66 Abs Lymphocytes 2.3 K/uL 0.8-5.5 66 Abmon 0.6 K/uL 0.1-1.0 66 Abs Eosinophils 0.1 K/uL 0.0-0.5 66 Abs Basophils 0.1 K/uL 0.0-0.3 66 Laboratory test finding 05/15/2014 Ferritin 4.3 ng/ml Low 11.0-306.0 66 Lipid Treatment 05/15/2014 Cholesterol 247 mg/dL High 50-199 66 Triglycerides 160 mg/dL 30-200 66 HDL 72 mg/dL 35-85 66, 69 Chol/ HDL Ratio 3.4 ratio Low 3.7-5.6 66 VLDL 32 mg/dL High 2-29 66 LDL (Calc) 143 mg/dL High 20-99 66, 70 Alt 10 U/L 3-42 66 Ast 12 U/L 8-42 Laboratory test finding 05/15/2014 Vit D,25 Hydroxy 32 ng/mL 31-100 66 Laboratory test finding 11/07/2013 % Baso. 0.9 % 0.0-2.0 % Eos. 1.9 % 0.0-4.0 % Lymph 32 % 20-44 % [place] 7.3 % 2.0-10.0 % Hao 58 % 50-70 Absolute Baso. 0.1 K/ul 0.0-0.3 Absolute Eos. 0.1 K/ul 0.0-0.5 Absolute Lymph. 2.5 K/ul 0.8-4.8 Absolute [place]. 0.6 K/ul 0.1-1.0 Absolute Hao. 4.61 K/ul 2.05-7.63 Alt 18.0 U/L 9.0-52.0 Ast 17.0 U/L 14.0-36.0 BUN 16.0 mg/dL 7.0-18.0 BUN/Creat Ratio 22.9 ratio High 12.0-20.0 Calcium 9.8 mg/dL 8.7-10.5 Chloride 105.0 mmol/L 98.0-107.0 Co2 25.0 mmol/L 22.0-30.0 Creatinine-Serum 0.7 mg/dL 0.7-1.2 Ferritin 5.3 ng/mL 3-105 71 Glucose 103.0 mg/dL 75.0-110.0 HCT 36.5 % Low 37.0-51.0 HGB 11.4 Gm/dl Low 12.0-16.0 MCH 25.2 pg Low 26.0-32.0 MCHC 31.2 g/dL 31.0-36.0 MCV 81.0 Fl 80.0-97.0 MPV 7.0 fL 6.0-10.0 PLT 415 K/ul 140-440 Potasium 4.3 mmol/L 3.6-5.0 RBC 4.5 M/ul 4.2-6.3 RDW 14.5 % 11.5-14.5 Sodium 142.0 mmil/L 137.0-145.0 Vitamin D 30.6 ng/mL 30.0-100.0 WBC 8.0 K/ul 4.1-10.9 eGFR 87.4 Lipid Panel 11/07/2013 Chol/HDL Ratio 3.6 ratio Cholesterol 257.0 mg/dL High 50.0-199.0 HDL 71.0 mg/dL 29.0-86.0 LDL, Calculated 133.6 mg/dL High 20.0-129.0 Triglycerides 262.0 mg/dL High 30.0-249.0 vLDL 52.4 ng/dL Laboratory test finding 05/10/2013 % Baso. 1.4 % 0.0-2.0 % Eos. 2.9 % 0.0-4.0 % Lymph 31 % 20-44 % [place] 9.1 % 2.0-10.0 % Hao 55 % 50-70 Absolute Baso. 0.1 K/ul 0.0-0.3 Absolute Eos. 0.2 K/ul 0.0-0.5 Absolute Lymph. 2.3 K/ul 0.8-4.8 Absolute [place]. 0.7 K/ul 0.1-1.0 Absolute Hao. 3.97 K/ul 2.05-7.63 Alt 14.0 U/L 9.0-52.0 Ast 17.0 U/L 14.0-36.0 BUN 11.0 mg/dL 7.0-18.0 BUN/Creat Ratio 13.8 ratio 12.0-20.0 Calcium 10.3 mg/dL 8.7-10.5 Chloride 105.0 mmol/L 98.0-107.0 Co2 26.0 mmol/L 22.0-30.0 Creatinine-Serum 0.8 mg/dL 0.7-1.2 Ferritin 6.7 ng/mL 3-105 72 Glucose 103.0 mg/dL 75.0-110.0 HCT 37.9 % 37.0-51.0 HGB 12.3 Gm/dl 12.0-16.0 MCH 28.6 pg 26.0-32.0 MCHC 32.4 g/dL 31.0-36.0 MCV 88.4 Fl 80.0-97.0 MPV 6.7 fL 6.0-10.0 Magnesium 2.1 1.7-2.3 PLT 400 K/ul 140-440 Potasium 4.3 mmol/L 3.6-5.0 RBC 4.3 M/ul 4.2-6.3 RDW 14.7 % High 11.5-14.5 Sodium 143.0 mmil/L 137.0-145.0 Vitamin D 22.3 ng/mL Low 30.0-100.0 WBC 7.2 K/ul 4.1-10.9 eGFR 74.9 Lipid Panel 05/10/2013 Chol/HDL Ratio 3.3 ratio Cholesterol 256.0 mg/dL High 50.0-199.0 HDL 78.0 mg/dL 29.0-86.0 LDL, Calculated 127.6 mg/dL 20.0-129.0 Triglycerides 252.0 mg/dL High 30.0-249.0 vLDL 50.4 ng/dL 1 Test Performed by: [facility] [address] [place] [address] 2 07/19 preOV 3 Updated reference range on new analyzer 4 Updated reference range on new analyzer 5 Concerning GFR Guidelines: Normal function or mild renal disease, if clinically at risk: >/=60 mL/min Moderately decreased: 30-59 Severely decreased: 15-29 Renal failure: <15 Glomerular Filtration Rate (GFR) is estimated based on the MDRD equation, which assumes a steady state for creatinine as recommended by the National Kidney Disease Education Program in conjunction with the National Institutes of Health and the National Kidney Foundation. Clinical conditions in which it may be necessary to measure GFR by using clearance methods include extremes of age and body size, severe malnutrition or obesity, diseases of skeletal muscle, paraplegia or quadriplegia, vegetarian diet, rapidly changing kidney function, and calculation of the dose of potentially toxic drugs that are excreted by the kidneys. 6 Concerning GFR Guidelines for Americans: Normal function or mild renal disease, if clinically at risk: >/=60 mL/min Moderately decreased: 30-59 Severely decreased: 15-29 Renal failure: <15 7 Updated Reference Range 8 Per NCEP ATP III Guidelines: Results lower than 40 mg/dL are suggestive of increased risk for coronary artery disease. Results > or=to 60 mg/dL are considered a negative risk factor. 9 Per NCEP ATP III Guidelines: Normal Population <130 Patients with medical conditions: CHD/DM Optimal: <100 Borderline high: 130-159 High: 160-189 Very high: >189 10 Clinical Guidelines for recommended serum 25(OH)Vitamin D Deficient at less than 20 ng/mL Insufficient at 20 to <30 ng/mL Sufficient at 30-100 ng/mL Toxicity at greater than 100 ng/mL 11 Please check labs today and 2 days before follow up 12 Please check labs today and 2 days before follow up 13 Acute inflammation: >10.00 14 Because ethnic data is not always readily available, this report includes an eGFR for both -Americans and non- Americans. The National Kidney Disease Education Program (NKDEP) does not endorse the use of the MDRD equation for patients that are not between the ages of 18 and 70, are , have extremes of body size, muscle mass, or nutritional status, or are non- or non-. According to the National Kidney Foundation, irrespective of diagnosis, the stage of the disease is based on the level of kidney function: Stage Description GFR(mL/min/1.73 m(2)) 1 Kidney damage with normal or decreased GFR 90 2 Kidney damage with mild decrease in GFR 60-89 3 Moderate decrease in GFR 30-59 4 Severe decrease in GFR 15-29 5 Kidney failure <15 (or dialysis) 15 01/17 - pre 16 Updated reference range on new analyzer 17 Updated reference range on new analyzer 18 Concerning GFR Guidelines: Normal function or mild renal disease, if clinically at risk: >/=60 mL/min Moderately decreased: 30-59 Severely decreased: 15-29 Renal failure: <15 Glomerular Filtration Rate (GFR) is estimated based on the MDRD equation, which assumes a steady state for creatinine as recommended by the National Kidney Disease Education Program in conjunction with the National Institutes of Health and the National Kidney Foundation. Clinical conditions in which it may be necessary to measure GFR by using clearance methods include extremes of age and body size, severe malnutrition or obesity, diseases of skeletal muscle, paraplegia or quadriplegia, vegetarian diet, rapidly changing kidney function, and calculation of the dose of potentially toxic drugs that are excreted by the kidneys. 19 Concerning GFR Guidelines for Americans: Normal function or mild renal disease, if clinically at risk: >/=60 mL/min Moderately decreased: 30-59 Severely decreased: 15-29 Renal failure: <15 20 Updated reference range on new analyzer 21 Per NCEP ATP III Guidelines: Results lower than 40 mg/dL are suggestive of increased risk for coronary artery disease. Results > or=to 60 mg/dL are considered a negative risk factor. 22 Per NCEP ATP III Guidelines: Normal Population <130 Patients with medical conditions: CHD/DM Optimal: <100 Borderline high: 130-159 High: 160-189 Very high: >189 23 Updated reference range on new analyzer 24 Updated reference range on new analyzer 25 Concerning GFR Guidelines: Normal function or mild renal disease, if clinically at risk: >/=60 mL/min Moderately decreased: 30-59 Severely decreased: 15-29 Renal failure: <15 Glomerular Filtration Rate (GFR) is estimated based on the MDRD equation, which assumes a steady state for creatinine as recommended by the National Kidney Disease Education Program in conjunction with the National Institutes of Health and the National Kidney Foundation. Clinical conditions in which it may be necessary to measure GFR by using clearance methods include extremes of age and body size, severe malnutrition or obesity, diseases of skeletal muscle, paraplegia or quadriplegia, vegetarian diet, rapidly changing kidney function, and calculation of the dose of potentially toxic drugs that are excreted by the kidneys. 26 Concerning GFR Guidelines for Americans: Normal function or mild renal disease, if clinically at risk: >/=60 mL/min Moderately decreased: 30-59 Severely decreased: 15-29 Renal failure: <15 27 Updated reference range on new analyzer 28 cc: Dr [email or web address]/[email or web address] preOV 07/18 preOV 07/18 preOV 07/18 preOV 07/18 preOV 07/18 preOV 29 Updated reference range on new analyzer 30 Updated reference range on new analyzer 31 Concerning GFR Guidelines: Normal function or mild renal disease, if clinically at risk: >/=60 mL/min Moderately decreased: 30-59 Severely decreased: 15-29 Renal failure: <15 Glomerular Filtration Rate (GFR) is estimated based on the MDRD equation, which assumes a steady state for creatinine as recommended by the National Kidney Disease Education Program in conjunction with the National Institutes of Health and the National Kidney Foundation. Clinical conditions in which it may be necessary to measure GFR by using clearance methods include extremes of age and body size, severe malnutrition or obesity, diseases of skeletal muscle, paraplegia or quadriplegia, vegetarian diet, rapidly changing kidney function, and calculation of the dose of potentially toxic drugs that are excreted by the kidneys. 32 Concerning GFR Guidelines for Americans: Normal function or mild renal disease, if clinically at risk: >/=60 mL/min Moderately decreased: 30-59 Severely decreased: 15-29 Renal failure: <15 33 Updated reference range on new analyzer 34 Per NCEP ATP III Guidelines: Results lower than 40 mg/dL are suggestive of increased risk for coronary artery disease. Results > or=to 60 mg/dL are considered a negative risk factor. 35 Per NCEP ATP III Guidelines: Normal Population <130 Patients with medical conditions: CHD/DM Optimal: <100 Borderline high: 130-159 High: 160-189 Very high: >189 36 01/16 preOV 37 Concerning GFR Guidelines: Normal function or mild renal disease, if clinically at risk: >/=60 mL/min Moderately decreased: 30-59 Severely decreased: 15-29 Renal failure: <15 Glomerular Filtration Rate (GFR) is estimated based on the MDRD equation, which assumes a steady state for creatinine as recommended by the National Kidney Disease Education Program in conjunction with the National Institutes of Health and the National Kidney Foundation. Clinical conditions in which it may be necessary to measure GFR by using clearance methods include extremes of age and body size, severe malnutrition or obesity, diseases of skeletal muscle, paraplegia or quadriplegia, vegetarian diet, rapidly changing kidney function, and calculation of the dose of potentially toxic drugs that are excreted by the kidneys. 38 Concerning GFR Guidelines for Americans: Normal function or mild renal disease, if clinically at risk: >/=60 mL/min Moderately decreased: 30-59 Severely decreased: 15-29 Renal failure: <15 39 Per NCEP ATP III Guidelines: Results lower than 40 mg/dL are suggestive of increased risk for coronary artery disease. Results > or=to 60 mg/dL are considered a negative risk factor. 40 Per NCEP ATP III Guidelines: Normal Population <130 Patients with medical conditions: CHD/DM Optimal: <100 Borderline high: 130-159 High: 160-189 Very high: >189 41 07/17 preOV 42 Concerning GFR Guidelines: Normal function or mild renal disease, if clinically at risk: >/=60 mL/min Moderately decreased: 30-59 Severely decreased: 15-29 Renal failure: <15 Glomerular Filtration Rate (GFR) is estimated based on the MDRD equation, which assumes a steady state for creatinine as recommended by the National Kidney Disease Education Program in conjunction with the National Institutes of Health and the National Kidney Foundation. Clinical conditions in which it may be necessary to measure GFR by using clearance methods include extremes of age and body size, severe malnutrition or obesity, diseases of skeletal muscle, paraplegia or quadriplegia, vegetarian diet, rapidly changing kidney function, and calculation of the dose of potentially toxic drugs that are excreted by the kidneys. 43 Concerning GFR Guidelines for Americans: Normal function or mild renal disease, if clinically at risk: >/=60 mL/min Moderately decreased: 30-59 Severely decreased: 15-29 Renal failure: <15 44 Per NCEP ATP III Guidelines: Results lower than 40 mg/dL are suggestive of increased risk for coronary artery disease. Results > or=to 60 mg/dL are considered a negative risk factor. 45 Per NCEP ATP III Guidelines: Normal Population <130 Patients with medical conditions: CHD/DM Optimal: <100 Borderline high: 130-159 High: 160-189 Very high: >189 46 Microbiology results SOURCE MIDU COLONY COUNT >100,000 CFU/ML PRELIMINARY RESULT Gram Negative Boo. ID & Sensitivity to Follow. FINAL RESULT Klebsiella pneumoniae (Isolate 1) Sensitivity Analysis Isolate 1 --------- AMIKACIN <=16 S AMPICILLIN/SULBACTAM <=8/4 S CEFAZOLIN <=2 S CEFEPIME <=8 S CEFTAZIDIME <=1 S CEFTRIAXONE <=1 S CIPROFLOXACIN <=1 S ERTAPENEM <=0.5 S GENTAMYCIN <=2 S IMIPENEM <=1 S LEVOFLOXACIN <=2 S NITROFURANTOIN 64 I PIPERACILLIN/TAZOBACTAM <=16 S TETRACYCLINE <=4 S TOBRAMYCIN <=4 S TRIMETHOPRIM/SULFAMETHOXAZ <=2/38 S S=Sensitive;I=Indeterminate;R=Resistant 47 Note: Persistent reduction for 3 months or more in an eGFR <60 mL/min/1.73 m2 defines CKD. Patients with eGFR values >/=60 mL/min/1.73 m2 may also have CKD if evidence of persistent proteinuria is present. The original MDRD equation for estimated GFR is not valid for patients less than 18 years of age. Additional information may be found at www.[email or web address]. 48 Reference Guidelines*: Desirable: ........... < 200 mg/dL Borderline High: ..... 200-239 mg/dL High: ................ >=240 mg/dL * The National Cholesterol Education Program (NCEP) 49 Reference Guidelines*: Normal: ............. < 150 mg/dL Borderline High: .... 150-199 mg/dL High: ............... 200-499 mg/dL Very High: .......... > 500 mg/dL * Source: National Cholesterol Education Program (NCEP) 50 Reference Guidelines*: Low HDL: ..... < 40 mg/dL Normal: ..... 40-60 mg/dL Desirable: ... > 60 mg/dL *The National Cholesterol Education Program(NCEP) 51 Reference Guidelines*: Optimal:........... <100 mg/dL Near Optimal....... 100-129 mg/dL Borderline High.... 130-159 mg/dL High............... 160-189 mg/dL Very High.......... >=190 mg/dL * Source: National Cholesterol Education Program (NCEP) 52 Note: Persistent reduction for 3 months or more in an eGFR <60 mL/min/1.73 m2 defines CKD. Patients with eGFR values >/=60 mL/min/1.73 m2 may also have CKD if evidence of persistent proteinuria is present. The original MDRD equation for estimated GFR is not valid for patients less than 18 years of age. Additional information may be found at www.[email or web address]. 53 Reference Guidelines*: Desirable: ........... < 200 mg/dL Borderline High: ..... 200-239 mg/dL High: ................ >=240 mg/dL * The National Cholesterol Education Program (NCEP) 54 Reference Guidelines*: Normal: ............. < 150 mg/dL Borderline High: .... 150-199 mg/dL High: ............... 200-499 mg/dL Very High: .......... > 500 mg/dL * Source: National Cholesterol Education Program (NCEP) 55 Reference Guidelines*: Low HDL: ..... < 40 mg/dL Normal: ..... 40-60 mg/dL Desirable: ... > 60 mg/dL *The National Cholesterol Education Program(NCEP) 56 Reference Guidelines*: Optimal:........... <100 mg/dL Near Optimal....... 100-129 mg/dL Borderline High.... 130-159 mg/dL High............... 160-189 mg/dL Very High.......... >=190 mg/dL * Source: National Cholesterol Education Program (NCEP) 57 11/15 preOV 58 Per NCEP ATP III Guidelines: Results lower than 40 mg/dL are suggestive of increased risk for coronary artery disease. Results > or=to 60 mg/dL are considered a negative risk factor. 59 Per NCEP ATP III Guidelines: Normal Population <130 Patients with medical conditions: CHD/DM Optimal: <100 Borderline high: 130-159 High: 160-189 Very high: >189 60 Concerning GFR Guidelines: Normal function or mild renal disease, if clinically at risk: >/=60 mL/min Moderately decreased: 30-59 Severely decreased: 15-29 Renal failure: <15 Glomerular Filtration Rate (GFR) is estimated based on the MDRD equation, which assumes a steady state for creatinine as recommended by the National Kidney Disease Education Program in conjunction with the National Institutes of Health and the National Kidney Foundation. Clinical conditions in which it may be necessary to measure GFR by using clearance methods include extremes of age and body size, severe malnutrition or obesity, diseases of skeletal muscle, paraplegia or quadriplegia, vegetarian diet, rapidly changing kidney function, and calculation of the dose of potentially toxic drugs that are excreted by the kidneys. 61 Concerning GFR Guidelines for Americans: Normal function or mild renal disease, if clinically at risk: >/=60 mL/min Moderately decreased: 30-59 Severely decreased: 15-29 Renal failure: <15 62 Microbiology results SOURCE URINE COLONY COUNT >100,000 CFU/ML PRELIMINARY RESULT Gram Negative Boo. ID & Sensitivity to Follow. FINAL RESULT Escherichia coli (Isolate 1) Sensitivity Analysis Isolate 1 --------- AMIKACIN <=16 S AMPICILLIN >16 R AMPICILLIN/SULBACTAM 16/8 I CEFAZOLIN 4 I CEFEPIME <=8 S CEFTAZIDIME <=1 S CEFTRIAXONE <=1 S CIPROFLOXACIN >2 R ERTAPENEM <=0.5 S GENTAMYCIN >8 R IMIPENEM <=1 S LEVOFLOXACIN >4 R NITROFURANTOIN <=32 S PIPERACILLIN/TAZOBACTAM <=16 S TETRACYCLINE >8 R TOBRAMYCIN >8 R TRIMETHOPRIM/SULFAMETHOXAZ >2/38 R S=Sensitive;I=Indeterminate;R=Resistant 63 Concerning GFR Guidelines for Americans: Normal function or mild renal disease, if clinically at risk: >/=60 mL/min Moderately decreased: 30-59 Severely decreased: 15-29 Renal failure: <15 64 Concerning GFR Guidelines: Normal function or mild renal disease, if clinically at risk: >/=60 mL/min Moderately decreased: 30-59 Severely decreased: 15-29 Renal failure: <15 Glomerular Filtration Rate (GFR) is estimated based on the MDRD equation, which assumes a steady state for creatinine as recommended by the National Kidney Disease Education Program in conjunction with the National Institutes of Health and the National Kidney Foundation. Clinical conditions in which it may be necessary to measure GFR by using clearance methods include extremes of age and body size, severe malnutrition or obesity, diseases of skeletal muscle, paraplegia or quadriplegia, vegetarian diet, rapidly changing kidney function, and calculation of the dose of potentially toxic drugs that are excreted by the kidneys. 65 Microbiology results SOURCE URINE COLONY COUNT 40,000 CFU/ML PRELIMINARY RESULT Gram Negative Boo. ID & Sensitivity to Follow. FINAL RESULT Escherichia coli (Isolate 1) Sensitivity Analysis Isolate 1 --------- AMIKACIN <=16 S AMPICILLIN >16 R AMPICILLIN/SULBACTAM 16/8 I CEFAZOLIN <=2 S CEFEPIME <=8 S CEFTAZIDIME <=1 S CEFTRIAXONE <=1 S CIPROFLOXACIN >2 R ERTAPENEM <=0.5 S GENTAMYCIN <=2 S IMIPENEM <=1 S LEVOFLOXACIN >4 R NITROFURANTOIN <=32 S PIPERACILLIN/TAZOBACTAM <=16 S TETRACYCLINE <=4 S TOBRAMYCIN <=4 S TRIMETHOPRIM/SULFAMETHOXAZ <=2/38 S S=Sensitive;I=Indeterminate;R=Resistant 66 HAS 05/22 OV 67 Concerning GFR Guidelines: Normal function or mild renal disease, if clinically at risk: >/=60 mL/min Moderately decreased: 30-59 Severely decreased: 15-29 Renal failure: <15 Glomerular Filtration Rate (GFR) is estimated based on the MDRD equation, which assumes a steady state for creatinine as recommended by the National Kidney Disease Education Program in conjunction with the National Institutes of Health and the National Kidney Foundation. Clinical conditions in which it may be necessary to measure GFR by using clearance methods include extremes of age and body size, severe malnutrition or obesity, diseases of skeletal muscle, paraplegia or quadriplegia, vegetarian diet, rapidly changing kidney function, and calculation of the dose of potentially toxic drugs that are excreted by the kidneys. 68 Concerning GFR Guidelines for Americans: Normal function or mild renal disease, if clinically at risk: >/=60 mL/min Moderately decreased: 30-59 Severely decreased: 15-29 Renal failure: <15 69 Per NCEP ATP III Guidelines: Results lower than 40 mg/dL are suggestive of increased risk for coronary artery disease. Results > or=to 60 mg/dL are considered a negative risk factor. 70 Per NCEP ATP III Guidelines: Normal Population <130 Patients with medical conditions: CHD/DM Optimal: <100 Borderline high: 130-159 High: 160-189 Very high: >189 71 FASTING 11/14 preOV 72 FASTING Procedures Date CPT Code Description Status Comment 08/11/2017 05451 Measure Blood Oxygen Level Completed Single Determination 10/27/2016 Colonoscopy Completed 11/12: DR CALIXTO - 2 small polyps, redo 5 y Colonoscopy/Ugi Endoscopy 10/17: DR CALIXTO - PAWAN, IH, 1 TA, RDO 5 Y Path: Colon & Ugi BX 06/27/2016 Mammogram Completed 06/16: NORMAL - Digital Mammo Screen Bilat 06/17: NORMAL Mammogram 06/21/2016 20418 Measure Blood Oxygen Level Completed Single Determination 03/11/2016 37743 Measure Blood Oxygen Level Completed Single Determination 07/08/2015 Bone Mineral Density Test Completed 08/14: normal 07/17: ls 0.7, hips 0.5, 1.4 - BD Dexa 02/07/2014 55337 Electrocardiogram Complete Completed 08/21/2013 02172 Bone Density Study, Single Completed Photon Absorptiometry 12/28/2011 26805 Spirometry /PFT W/O Completed Bronchodialator Encounters Type Date Location Provider CPT E/M Dx Office Visit 08/11/2017 2:00p [place] [address] J31.2 Z68.32 Office Visit 07/17/2017 8:15a [place] [address] I10 E78.00 E55.9 D50.9 M15.9 M06.9 F33.1 J06.9 R73.01 Z68.32 Office Visit 01/30/2017 1:00[place] [address] R21 Office Visit 01/16/2017 9:00[place] [address] I10 E78.00 E55.9 D50.9 F33.1 M06.9 M15.9 K21.9 Z00.00 Office Visit 09/27/2016 9:30[place] [address] R42 Office Visit 07/08/2016 10:00[place] [address] I10 E78.00 E55.9 D50.9 M06.9 M15.9 K21.9 F33.1 D12.6 Office Visit 06/21/2016 4:30p [place] [address] R05 Office Visit 03/11/2016 9:45a [place] [address] B34.9 Office Visit 01/07/2016 10:00[place] [address] Z00.00 I10 M15.9 M06.9 K21.9 F33.1 E78.00 E55.9 D12.6 Z68.29 D50.9 Office Visit 07/08/2015 1:30p [place] [address] I10 E78.0 E55.9 M06.9 F33.1 K21.9 Office Visit 06/12/2015 8:00a [facility] [place] [address] R30.0 Office Visit 04/29/2015 2:00p [facility] [place] [address] M06.9 F33.1 Office Visit 04/08/2015 3:45p [facility] [place] [place] [address] M06.4 M06.9 I10 E78.0 K21.9 E55.9 D50.9 F33.1 Office Visit 11/26/2014 1:00p [facility] [place] [address] 782.1 401.1 272.0 285.9 530.81 714.9 V58.69 V03.82 Office Visit 09/22/2014 2:45p [facility] R[place] 03523N 595.0 Office Visit 09/11/2014 1:00p [facility] [place] [address] 782.1 780.79 788.1 714.0 Office Visit 05/22/2014 9:00a [facility] [place] [address] 401.1 530.81 272.0 268.9 714.0 311 278.00 285.9 V58.69 Plan of Care Future Appointment(s):01/10/2018 8:10 am - Schedule, Laboratory at [facility]2017 9:00 am - Ravin Butler MD at [facility]09/22/2017 - Nicole Butler , [id number] Insect bite (nonvenomous) of RIGHT upper arm, init encntrComments: May continue Benadryl gel.Monitor for any sign of infectionFollow up:PRN for any sign of infection
[2017-10-18 13:00] VITALS: BP 117/67
--- NOTE | 2017-10-18 13:17 | UC ---
Hand/Wrist HPI - HPI Summary HPI Summary: Pt c/o left wrist and shoulder pain after tripping over friend who hand fallen over curb in road. - History Of Current Complaint Chief Complaint: UCUpperExtremity Stated Complaint: LEFT WRIST INJURY S/P FALL Time Seen by Provider: 10/18/17 12:52 Hx Obtained From: Patient Hx Last Menstrual Period: N/A ?: No Onset/Duration: Sudden Onset, Still Present Severity Initially: Moderate Severity Currently: Moderate Pain Intensity: 8 Character Of Pain: Dull, Aching, Stiffness Aggravating Factor(s): Movement Alleviating Factor(s): Rest Associated Signs And Symptoms: Positive: Swelling, Bruising Related History: Dominant Hand Right - Risk Factors Compartment Syndrome Risk Factors: Pain - Allergies/Home Medications Allergies/Adverse Reactions: Allergies Allergy/AdvReac Type Severity Reaction Status Date / Time No Known Allergies Allergy Verified 07/02/15 10:24 Home Medications: Home Medications Abatacept* [Orencia*] 125 mg INJ WEEKLY 10/18/17 [History Confirmed 10/18/17] Gabapentin CAP(*) [Neurontin 300 CAP(*)] 300 mg PO DAILY 10/18/17 [History Confirmed 10/18/17] PMH/Surg Hx/FS Hx/Imm Hx Previously Healthy: Yes Cardiovascular History: Hypertension - Surgical History Surgical History: Yes Surgery Procedure, Year, and Place: tOTAL LEFT KNEE 2007; ROTATOR CUFF REPAIR RT SHOULDER 2000; TUBAL LIGATION - Family History Known Family History: Positive: Cardiac Disease - Social History Occupation: Retired Lives: With Family Alcohol Use: None Substance Use Type: None Smoking Status (MU): Never Smoked Tobacco Have You Smoked in the Last Year: No - Immunization History Most Recent Influenza Vaccination: 2014 Most Recent Pneumonia Vaccination: 2014 Review of Systems Constitutional: Negative Skin: Bruising Eyes: Negative ENT: Negative Respiratory: Negative Cardiovascular: Negative Gastrointestinal: Negative Genitourinary: Negative Motor: Decreased ROM - left wrist Neurovascular: Negative Musculoskeletal: Arthralgia, Decreased ROM - left wrist, Myalgia Neurological: Negative Psychological: Negative Is Patient Immunocompromised?: No All Other Systems Reviewed And Are Negative: Yes Physical Exam Triage Information Reviewed: Yes Appearance: Pain Distress Vital Signs: Initial Vital Signs Temp 99.1 F 10/18/17 12:52 Pulse 87 10/18/17 12:52 Resp 18 10/18/17 12:52 BP 117/67 10/18/17 12:52 Pulse Ox 99 10/18/17 12:52 Vital Signs Reviewed: Yes Eye Exam: Normal ENT: Positive: Hearing grossly normal Neck exam: Normal Respiratory: Positive: No respiratory distress Musculoskeletal: Positive: ROM Limited @ - left wrist, Other: - has arthritis Neurological Exam: Normal Psychological Exam: Normal Skin Exam: Normal Diagnostics - Radiology No standard instances Radiology Interpretation Completed By: Radiologist - IMPRESSION: INTRA- ARTICULAR DISTAL RADIAL FRACTURE AND ULNAR STYLOID FRACTURE. SCAPHOLUNATE DIASTASES. ADVANCED OSTEOARTHRITIS BASE OF THE THUMB Hand/Wrist Course/Dx - Differential Dx/Diagnosis Differential Diagnosis/HQI/PQRI: Contusion, Fracture Provider Diagnoses: left wrist fracture. IMPRESSION: INTRA-ARTICULAR DISTAL RADIAL FRACTURE AND ULNAR STYLOID FRACTURE. SCAPHOLUNATE DIASTASES. ADVANCED OSTEOARTHRITIS BASE OF THE THUMB Discharge - Sign-Out/Discharge Documenting (check all that apply): Patient Departure - Discharge Plan Condition: Stable Disposition: HOME Patient Education Materials: Wrist Fracture in Adults (ED) Referrals: Ravin Butler MD [Primary Care Provider] - Ney Pierre MD [Medical Doctor] - As Soon As Possible - Billing Disposition and Condition Condition: STABLE Disposition: Home
--- NOTE | 2017-10-18 13:31 | RAD ---
INDICATION: Left wrist injury COMPARISON: None TECHNIQUE: AP, lateral, and oblique views were obtained. FINDINGS: There is a mildly impacted intra-articular fracture involving the radial styloid. There is also a fracture from the ulnar styloid. There is widening of scapholunate space. Advanced osteoarthritis but the base of the thumb is present as well. There is soft tissue swelling. IMPRESSION: INTRA-ARTICULAR DISTAL RADIAL FRACTURE AND ULNAR STYLOID FRACTURE. SCAPHOLUNATE DIASTASES. ADVANCED OSTEOARTHRITIS BASE OF THE THUMB
== END 2017-10-18 14:00 | disposition home or self-care (01) ==
LOC: UCCORT 12:33
DX: S52.572A Other intraarticular fracture of lower end of left radius, initial encounter for closed fracture (principal); S52.612A Displaced fracture of left ulna styloid process, initial encounter for closed fracture; M18.12 Unilateral primary osteoarthritis of first carpometacarpal joint, left hand; M24.232 Disorder of ligament, left wrist; M25.512 Pain in left shoulder; I10 Essential (primary) hypertension; W19.XXXA Unspecified fall, initial encounter; Y92.488 Other paved roadways as the place of occurrence of the external cause
CPT/HCPCS: 99212; G0463

== ENCOUNTER 2018-09-11 07:30 | Inpatient (IN) | payer MEDICARE ==
--- NOTE | 2018-08-29 16:56 | HP ---
Amended report to enter cosigning physician. HISTORY AND PHYSICAL: DATE OF ADMISSION/SURGERY: 09/11/18 DATE OF OFFICE VISIT: 08/29/18 SURGEON: Sadaf Brewster MD* (dictated by NNEKA Leos). PROCEDURE: Right total knee arthroplasty. CHIEF COMPLAINT: Right knee pain. HISTORY OF PRESENT ILLNESS: Ms. Vang is a 77-year-old female with continued complaints of right knee pain. She has failed conservative treatment and elected to proceed with a right total knee arthroplasty. PAST MEDICAL HISTORY: RA, hypertension, GERD, and hiatal hernia. PAST SURGICAL HISTORY: Vocal cord polyp removal, tubal ligation, left total knee arthroplasty, hysteroscopy, left knee arthroscopy, and right rotator cuff repair. CURRENT MEDICATIONS: 1. Lisinopril/hydrochlorothiazide 20/25 mg daily. 2. Tylenol as needed. 3. Vitamin D3. 4. Biotin. 5. Vitamin B12. 6. Slow release iron. 7. Vitamin C. 8. Tramadol as needed. 9. Meclizine 25 mg every 8 hours as needed. 10. Lutein Vision blend. 11. Wellbutrin 300 mg daily. 12. Methotrexate 2.5 mg 7 tabs once a week. 13. Gabapentin 300 mg q.h.s. 14. Folic acid. 15. Orencia 125 mg/mL. It is an injection once a week. ALLERGIES: No known drug allergies. FAMILY HISTORY: Colon cancer and diabetes. SOCIAL HISTORY: She is a 77-year-old female. She lives alone. She does not smoke or use drugs. REVIEW OF SYSTEMS: A complete 14-point review of systems was reviewed with the patient. It was positive for GERD. She denies history of DVT, PE, hepatitis, HIV, or anesthesia problems. PHYSICAL EXAMINATION GENERAL: She is well developed, well nourished, in no acute distress. VITAL SIGNS: She stands 5 feet 2 inches tall, weighs 155 pounds. Her blood pressure is 124/82, her heart rate is 100. HEENT: Normocephalic, atraumatic. NECK: Supple. No palpable lymph nodes. PULMONARY: The lungs are clear to auscultation bilaterally. CARDIO: Regular rate and rhythm. Strong S1, S2. ABDOMEN: Soft, nontender, nondistended. NEUROLOGICAL: She is alert and oriented x3. MUSCULOSKELETAL: Right lower extremity: The skin is intact. There are no open wounds or abrasions. There is a moderate effusion of the right knee joint. Range of motion is 10 to 125 degrees of flexion with patellofemoral crepitus. She has a 2+ dorsalis pedis pulse, intact sensation, and her lower extremity muscle group strengths are intact at 5/5. ASSESSMENT AND PLAN: Ms. Vang is a 77-year-old female with end-stage osteoarthritis of the right knee. She has failed conservative treatment and elected to proceed with a right total knee arthroplasty. Her surgery is scheduled for 09/11/[address] Brewster discussed the risks and benefits of the surgery at today's visit and all of her questions were answered. She will follow up with Dr. Brewster 2 weeks after the surgery. NNEKA LEOS [id number]/[facility] #: [id number] [place]
[~2018-09-11 07:30] MED LIST: Buffered Lidocaine 1% SYRIN* 1 ML/SYRINGE INTRADERM ONE; Dexamethasone IV* 4 MG/ML 1 ML (4 MG) IV SLOW PU ONE; Famotidine IV* 10 MG/ML 2 ML (20 mg) IV ONE; Gabapentin CAP(*) 300 MG PO ONE; Lactated Ringers 1000 ML Bag* 1,000 ML IV SCH; Tranexamic Acid 1,000 MG in NS 0.9% 50 ML* (outpatient use) IV SCH
[2018-09-11] MEDS ORDERED: KETAMINE HCL* 50 MG/ML 10 ML VIAL ONE (12:34)
[2018-09-11] MEDS ORDERED: Propofol* 10 MG/ML 20 ML BTL ONE (12:34)
[2018-09-11] MEDS ORDERED: Ondansetron INJ* 2 MG/ML VIAL ONE (12:34)
[2018-09-11] MEDS ORDERED: fentaNYL* 50 MCG/ML 2 ML VIAL (100 MCG VIAL) ONE (12:34)
[2018-09-11] MEDS ORDERED: Midazolam* 1 MG/ML 5 ML VIAL (5 MG) ONE (12:34)
[2018-09-11] MEDS ORDERED: Bupivacaine 0.5%* 50 ML VIAL ONE (12:40)
[2018-09-11] MEDS ORDERED: Famotidine IV* 10 MG/ML 2 ML (20 mg) ONE (12:43)
[2018-09-11] MEDS ORDERED: Gabapentin CAP(*) 300 MG ONE (12:43)
[2018-09-11] MEDS ORDERED: Dexamethasone IV* 4 MG/ML 1 ML (4 MG) ONE (12:43)
[2018-09-11] MEDS ORDERED: ceFAZolin 2 GM PREMIX in ORs 2 GM/50 ML BAG ONE (12:43)
[2018-09-11] MEDS ORDERED: Buffered Lidocaine 1% SYRIN* 1 ML/SYRINGE INTRADERM ONE (12:43)
[2018-09-11] MEDS ORDERED: ROPIVACAINE 5 MG/ML 30 ML BTL (0.5%) ONE ×2 (13:22→13:44)
[2018-09-11] MEDS ORDERED: Bupivacaine 0.5% SDV PF* 30ML VIAL ONE (13:35)
[2018-09-11] MEDS ORDERED: Acetaminophen IV 1GM/100ML * 100 ML ONE (13:36)
[2018-09-11] MEDS ORDERED: Scopolamine 1.5 mg* PATCH TRANSDERM PRN (15:41)
[2018-09-11] MEDS ORDERED: fentaNYL* 50 MCG/ML 2 ML VIAL (100 MCG VIAL) IV PRN (15:41)
[2018-09-11] MEDS ORDERED: DiMENhydriNATE IV* 50 MG/ML VIAL IV PUSH PRN (15:41)
[2018-09-11] MEDS ORDERED: Ondansetron INJ* 2 MG/ML VIAL IV PRN (15:41)
[2018-09-11] MEDS ORDERED: Naloxone* 0.4 MG/ML 1 ML VIAL IV PRN (15:41)
[2018-09-11] MEDS ORDERED: Acetaminophen TAB* 325 MG PO PRN (16:29)
[2018-09-11] MEDS ORDERED: oxyCODONE/Acetamin 5/325 MG* TAB PO PRN (16:29)
[2018-09-11] MEDS ORDERED: diPHENhydraMINE IV* 50 MG/ML 1 ml VIAL (BENADRYL) IV PRN (16:29)
[2018-09-11] MEDS ORDERED: Magnesium Hydroxide LIQ* 30 ML UDC PO PRN (16:29)
[2018-09-11] MEDS ORDERED: Bisacodyl SUPP* 10 MG SUPP PR PRN (16:29)
[2018-09-11] MEDS ORDERED: Cyclobenzaprine TAB* 10 MG PO PRN (16:29)
[2018-09-11] MEDS ORDERED: Polyethylene Glycol 3350* 17 GM PACKET PO PRN (16:29)
--- NOTE | 2018-09-11 18:15 | OP ---
Operative Report - Blank - Operative Report Date of Operation: 09/11/18 Note: ARMANDO HERNANDES 1940 Date of Surgery: 09/11/18 Sadaf Brewster MD Die Cleaner: Matilde EARLY did help throughout the procedure with preparation of the knee, wound retraction, manipulation of the knee, and wound closure. Anesthesiologist: Curt Cash MD Anesthesia Type: Spinal Preoperative Diagnosis: Right severe degenerative osteoarthritis of the knee Postoperative Diagnosis: As above Procedure Performed: Right Total Knee Arthroplasty Tourniquet time: 46 minutes Complications: None Specimen: Bone and cartilage from the right knee joint sent to pathology. Hardware Used: Cemented [employer]ier [employer] Nephew total knee hardware was used - For the femur a size 4 narrow right oxinium legion posterior stabilized femoral component, for the tibia a size 3 maurilio II tibial baseplate, for the insert a size 9mm 3-4 posterior stabilized articular polyethylene insert, and for the patella a size 32 3-peg all poly patella. Brief History/Indication: ARMANDO HERNANDES was known in clinic and had a history of severe right knee pain and swelling. She failed conservative treatment with anti-inflammatories, pain pills, intra-articular injections and physical therapy. She elected to undergo right total knee arthroplasty due to continued pain and decreased quality of life. Radiographs showed severe end stage osteoarthritis of the knee with bone on bone contact. Informed consent was obtained from the patient. She understood the risks of surgery included but were not limited to: bleeding, infection, damage to nearby structures, intraoperative fracture, nerve palsy, failure of the hardware, early loosening, knee stiffness or loss of motion, anesthesia complications, stroke, heart attack , blood clot and . She wished to proceed. Intra-Operative Findings: Intraoperatively the patient was noted to have severe loss of cartilage in all 3 compartments of the knee. Description of the Procedure: ARMANDO HERNANDES was identified in the preanesthesia unit. Her right knee was marked as the correct operative side. Informed consent was signed and placed in the chart. The patient was taken to the operating room and placed under anesthesia without complication. A delgado catheter was placed. A tourniquet was placed on the right thigh. The right lower extremity was prepped and draped in the usual sterile fashion. Preoperative time-out was made to correctly identify the patient, side and site. Appropriate intraoperative antibiotics were given within one hour of incision. Tourniquet was inflated. A midline incision was made and carried sharply down to the extensor mechanism. A new 10 blade was used to make a standard medial parapatellar arthrotomy. The patella was subluxed laterally. Electrocautery was used to dissect soft tissue off the superomedial tibia to the midsagittal plane. The knee was flexed up. The anterior horn of the lateral meniscus and the ACL were sharply incised. A drill was used to enter the distal femur. The intramedullary distal femoral cutting guide was pinned on the distal femur. The oscillating saw was used to make the distal femoral cut. The external rotation guide was pinned on the distal femur and the distal femur was sized to a size 4. The size 4 multi-cutting jig was pinned on the distal femur. The oscillating saw was used to make the appropriate 4 chamfer cuts. Next the PCL was completely released. The extramedullary tibial cutting guide was pinned on the proximal tibia and the oscillating saw was used to make the proximal tibial cut perpendicular to the mechanical axis of the tibia. The bone was carefully removed. The knee was brought out into full extension. The spacer block was placed and had excellent fit with the knee in full extension. The medial and lateral ligaments were well balanced. The flexion and extension gaps were well balanced. The knee was flexed up. [place] was placed both medially and laterally. Any remaining meniscus was removed with electrocautery. Curved osteotome was used to remove any posterior osteophytes. The tibial tray and drop austyn were placed and confirmed a satisfactory tibial cut. The size 4 right narrow oxinium femoral trial was impacted onto the distal femur. This trial had excellent fit and stability. The box for the posterior stabilized implant was prepared using a box cut osteotome and a reamer. Next a tibial tray trial and 9 mm insert trial was placed. The knee was taken through a range of motion and had full extension to 130 degrees of flexion. Patellofemoral tracking was satisfactory. The patella was inverted and sized to a size 32. Three peg holes were drilled through the size 32 drill guide. The trial patella was placed and the knee was taken through a range of motion. There was satisfactory patellofemoral tracking. All trials were removed. The tibia was subluxed anteriorly and sized to a size 3. The proximal tibial was prepared with a size 3 keel punch. All bony cut surfaces were irrigated with sterile saline and dried. Final implants were cemented into place starting with the tibia, followed by the femur, and last the patella. A 9 mm insert trial was placed and the knee was brought into full extension. Tourniquet was turned down and the knee was copiously irrigated with sterile saline. Electrocautery was used to obtain meticulous hemostasis. Once the cement had fully cured, the insert trial was removed. Any excess cement was removed from around the hardware and capsule. Final insert chosen was a 9 mm posterior stabilized Maurilio II articular insert size 3-4. Stability of the insert was checked and noted to be stable. The extensor mechanism was closed using number 1 vicryls. The rest of the incision was closed in a layered fashion using 0 and 2-0 vicryls. The skin was closed using 3-0 nylon suture. Sterile xeroform, 4x4s and webril were used to cover the incision. Dmitri wrap and cold pack were used to cover the dressings. The patients anesthesia was reversed without difficulty. She was taken to the PACU in stable condition. Intended weight-bearing will be as tolerated.
[2018-09-11] MEDS ORDERED: oxyCODONE/Acetamin 5/325 MG* TAB ONE (18:38)
[2018-09-11] MEDS: HYDROmorphone INJ1* 1 MG/ML SYRINGE IV PRN ×2 (19:05→19:19)
[2018-09-11] MEDS ORDERED: HYDROmorphone INJ1* 1 MG/ML SYRINGE ONE (19:05)
[2018-09-11] MEDS: Lactated Ringers 1000 ML Bag* 1,000 ML IV SCH (20:04)
[2018-09-11] MEDS ORDERED: Lisinopril TAB* 10 MG PO SCH (21:00)
[2018-09-11] MEDS ORDERED: Hydrochlorothiazide TAB* 25 MG PO SCH (21:00)
--- NOTE | 2018-09-11 21:04 | CONSULT ---
Subjective Date of Service: 09/11/18 Interval History: This is a 77 year old female with history of RA, OA and HTN that presented to Dr. Brewster with knee pain. She has failed conservative outpatient treatment and has presented today for elective right total knee arthroplasty. Hospitalist service is being requested to consult fro medical co-management. The patient was seen in the PACU, awake, in a post-operative state. In no distress. Family History: Unchanged from Admission - non-contributory Social History: Unchanged from Admission - denies smoking, ETOH or alcohol use Past Medical History: Unchanged from Admission - RA, OA, HTN Review of Systems - Measurements Intake and Output: Intake and Output Last 24 Hours 09/09/18 09/10/18 09/11/18 09/12/18 06:59 06:59 06:59 06:59 Intake Total 2240 Output Total 575 Balance 1665 Weight 154 lb Intake: IV Fluids 1999 LR 2000 Oral 240 Output: Acosta 425 Estimated Blood Loss 150 - Review of Systems Constitutional Symptoms: Negative: Weight Gain, Weight Loss, Weakness, Fatigue, Fever, Night Sweats, Unexplained Falls, Other Dermatology: Negative: Normal, Rash, Skin Lesions, Cancer, Skin Lumps, Other HEENT: Negative: Normal, Change in Hearing, Vertigo, Dental Problems, Tinnitus, Sinus Problem, Other Eyes: Negative: Normal, Change in Vision, Double Vision, Eye Pain, Glaucoma, Cataract, Contacts or Glasses, Other Thyroid: Negative: Normal, Goiter, Thyroid Nodule, Cold Intolerance, Heat Intolerance , Sweatiness, Tremor, Frequent Defecation, Constipation, Palpitations, Primary Hypothyroidism, Primary Hyperthyroidism, Weight Loss, Weight Gain, Change in Skin/Hair, Change in Menstruation, Radiation Exposure, Other Pulmonary: Negative: Normal, Cough, Sputum, Hemoptysis, Wheezing, Respiratory Distress, Shortness of Breath, COPD, Asthma, Exercise Intolerance, Home Oxygen, Other Cardiology: Negative: Normal, Chest Pain, Shortness of Breath, Palpitations, Swelling of Ankles, Peripheral Vascular Dis, Edema, Faintness, Syncope, Claudication, Proximal NocturnalDyspnea, Orthopnoea, Other Gastroenterology: Negative: Normal, Abdominal Pain, Nausea, Vomiting, Anorexia, Indigestion, Difficulty Swallowing, Heartburn, Constipation, Diarrhea, Blood in Stools, Change in Bowel Habits, Haematemesis, Melena, Other Genital - Urinary: Negative: Normal, Dysuria, Hematuria, Polyuria, Nocturia, Other Genitourinay - Female: Negative: Menses Normal, Vaginal Discharge, Menopause, Dysmenorrhea, Other Musculoskeletal: Positive: Joint Pain, Joint Stiffness Endocrinology: Negative: Normal, Thyroid Problems, Adrenal Problems, Gonadal Problems, Family Hx Endocrine Disorders, Obesity, Diabetes Mellitus, Hyperglycemia, Hx Hypoglycemia, Diabetic Foot Ulcers, Calluses, Hirsutism, Menstrual Abnormalities , Polydipsia, Polyuria, Gonadal Problems, Gynecomastia, Pituitary disease, Other Neurology: Positive: Headache Negative: Normal, Migraines, Change in Vision, Diplopia, Dizziness, Change in Balancing, Change in Coordination, Change in Memory, Change in Speech, Change in Sphincter Function, Change in Walking, Numbness\Paresthesiae, Unexplained Weakness, Hx of Stroke\TIA, Hx of Seizures, Other Psychiatry: Negative: Normal, Depression, Anxiety, Depressed Mood, Anhedonia, Sexual Dysfunction, Weight Change, Guilt Feelings, Tearfulness, Unusual Fatigue, Unusual Anxiety, Suicidal Ideation, Hypomania, Eating Disorders, Other Allergic/Immunologic: Negative: Hx Anaphylaxis, Hx Angioedema, Hx Environmental, Hx Seasonal, Asthma, Hx HIV, Immunocompromise, Swollen Glands LymphNodes, Other Objective Active Medications: Acetaminophen (Tylenol Tab*) 650 mg PO Q6H PRN PRN Reason: PAIN OR TEMPERATURE Bisacodyl (Dulcolax Supp*) 10 mg [place] DAILY PRN PRN Reason: constipation Bupropion HCl (Bupropion Xl*) 300 mg PO QPM [facility] Cyclobenzaprine HCl (Flexeril Tab*) 5 mg PO TID PRN PRN Reason: SPASMS Dimenhydrinate (Dramamine Iv*) 25 mg IV PUSH ONCE PRN PRN Reason: NAUSEA/VOMITING Diphenhydramine HCl (Benadryl Iv*) 25 mg IV Q6H PRN PRN Reason: itching Docusate Sodium (Colace Cap*) 100 mg PO BID [facility] Fentanyl Citrate (Fentanyl*) 50 mcg IV Q2M PRN PRN Reason: PAIN - MODERATE Hydrochlorothiazide (Hydrodiuril Tab*) 12.5 mg PO QPM SH[facility] Hydromorphone HCl (Dilaudid Inj1s*) 0.2 mg IV Q5M PRN PRN Reason: PAIN - SEVERE Last Admin: 09/11/18 19:19 Dose: 0.2 mg Lactated Ringer's (Lactated Ringers 1000 Ml Bag*) 1,000 mls @ 125 mls/hr IV PER RATE [facility]AY[facility] Last Admin: 09/11/18 12:59 Dose: 125 mls/hr Tranexamic Acid 1,000 mg/ (Sodium Chloride) 60 mls @ 120 mls/hr IV ONCE Stop: 09/11/18 23:59 Cefazolin Sodium 1 gm/ Sodium (Chloride) 50 mls @ 200 mls/hr IVPB Q8H [facility]AY[facility] Stop: 09/12/18 14:44 Lactated Ringer's (Lactated Ringers 1000 Ml Bag*) 1,000 mls @ 100 mls/hr IV PER RATE [facility] [place] Lactulose (Lactulose*) 30 ml PO Q6H PRN PRN Reason: constipation Lisinopril (Prinivil Tab*) 20 mg PO QPM [facility] [place] Magnesium Hydroxide (Milk Of Magnesia Liq*) 30 ml PO BID SHAY[facility] Magnesium Hydroxide (Milk Of Magnesia Liq*) 30 ml PO Q6H PRN PRN Reason: constipation Morphine Sulfate (Morphine 4 Mg/Ml Vial (1 Ml)) 2 mg IV Q2H PRN PRN Reason: PAIN Multivitamins (Theragran Tab*) 1 tab PO DAILY [facility] Naloxone HCl (Narcan*) 0.08 mg IV Q2M PRN PRN Reason: severe induced resp depression Ondansetron HCl (Zofran Inj*) 4 mg IV ONCE PRN PRN Reason: NAUSEA/VOMITING Ondansetron HCl (Zofran Inj*) 4 mg IV Q6H PRN PRN Reason: nausea Oxycodone HCl (Roxycodone Tab*) 10 mg PO Q4H PRN PRN Reason: PAIN - SEVERE Oxycodone/Acetaminophen (Percocet 5/325 Tab*) 1 tab PO Q4H PRN PRN Reason: PAIN Last Admin: 09/11/18 18:40 Dose: 1 tab Oxycodone/Acetaminophen (Percocet 5/325 Tab*) 2 tab PO Q4H PRN PRN Reason: PAIN Polyethylene Glycol/Electrolytes (Miralax*) 17 gm PO DAILY PRN PRN Reason: Constipation Scopolamine (Transderm-Scop 1.5 Mg Patch*) 1 patch TRANSDERM Q72H PRN PRN Reason: Nausea/Vomiting Vital Signs - 8 hr 06/02/1909/11/18 09/11/18 16:51 16:55 17:00 Temperature 96.8 F Pulse Rate 93 92 91 Respiratory 11 11 Rate Blood Pressure 120/76 116/77 106/74 (mmHg) O2 Sat by Pulse 100 95 95 Oximetry 09/11/18 09/11/18 09/11/18 17:05 17:15 17:30 Temperature Pulse Rate 89 90 92 Respiratory 7 12 Rate Blood Pressure 122/74 113/85 116/80 (mmHg) O2 Sat by Pulse 99 98 98 Oximetry 09/11/18 09/11/18 09/11/18 17:45 18:00 18:15 Temperature 97.7 F Pulse Rate 95 95 98 Respiratory 28 15 14 Rate Blood Pressure 126/74 117/91 119/75 (mmHg) O2 Sat by Pulse 99 97 92 Oximetry 09/11/18 09/11/18 09/11/18 18:37 18:40 18:45 Temperature Pulse Rate 101 107 Respiratory 16 16 18 Rate Blood Pressure 118/84 114/87 (mmHg) O2 Sat by Pulse 98 100 Oximetry 09/11/18 09/11/18 09/11/18 19:00 19:05 19:15 Temperature 97.5 F Pulse Rate 104 94 Respiratory 17 16 16 Rate Blood Pressure 108/75 123/68 (mmHg) O2 Sat by Pulse 99 100 Oximetry 09/11/18 09/11/18 19:19 19:30 Temperature Pulse Rate 87 Respiratory 20 18 Rate Blood Pressure 125/70 (mmHg) O2 Sat by Pulse 98 Oximetry Oxygen Devices in Use Now: Nasal Cannula Appearance: alert, NAD Eyes: No Scleral Icterus, PERRLA Ears/Nose/Mouth/Throat: NL Teeth, Lips, Gums, - - dry oral mucosa Neck: NL Appearance and Movements; NL JVP, Trachea Midline Respiratory: Symmetrical Chest Expansion and Respiratory Effort, Clear to Auscultation Cardiovascular: NL Sounds; No Murmurs; No JVD, RRR, No Edema Abdominal: NL Sounds; No Tenderness; No Distention, - - hypoactive BS Extremities: No Edema, No Clubbing, Cyanosis, - Skin: No Rash or Ulcers, - - dressing CDI Neurological: Alert and Oriented x 3, - - decreased sensation bilat LE, decreased motor, 2/2 regional block anesthesia Result Diagrams: 09/12/18 04:54 09/12/18 04:54 Assessment/Plan - Billing Assessment: This is a 77 year old female with history or OA/RA that presented for elective TKA: 1. S/P LTKA - POC as per Orthopedics - Pain control, bowel regimen - OOB with PT/OT - DVT prophylaxis with eliquis to start at noon tomorrow 2. HTN - BP stable, consider starting DI/HCTZ tomorrow 3. Hx of RA - Holding methotrexate and orencia VTE PPX: - Eliquis 2.5 mg PO BID Diet: - Regular as tolerated Code Status: - Full Admission Status and Rationale: - Inpatient, dispo as per orthopedics. Thank you for the courtesy of this consult. Will continue to follow the patient will you.
[2018-09-11] MEDS: Docusate CAP* 100 MG PO SCH (21:06)
[2018-09-11] MEDS: Magnesium Hydroxide LIQ* 30 ML UDC PO SCH (21:06)
[2018-09-11] MEDS: BuPROPion XL* 300 MG TAB.XL PO SCH (21:07)
[2018-09-11] MEDS: oxyCODONE TAB* 5 MG TAB PO PRN (21:07)
[2018-09-11] MEDS: oxyCODONE/Acetamin 5/325 MG* TAB PO PRN (23:01)
[2018-09-11] MEDS: ceFAZolin 1 GM ADVAN(*) 1 GM in NS 0.9% 50 ML* 50 ML IVPB SCH (23:02)
[2018-09-11] MEDS: Morphine 4 MG/ML VIAL (1 ml) 4 MG/ML VIAL IV PRN (23:07)
[2018-09-12] MEDS: oxyCODONE TAB* 5 MG TAB PO PRN (01:54)
[2018-09-12] MEDS: Ondansetron INJ* 2 MG/ML VIAL IV PRN ×3 (02:23→15:09)
[2018-09-12] MEDS: oxyCODONE/Acetamin 5/325 MG* TAB PO PRN ×4 (04:59→21:04)
[2018-09-12 05:01] LABS: Hematocrit 35 % (35-47); Hemoglobin 11.5 g/dL (12.0-16.0); Mean Platelet Volume 7.2 fL (7.4-10.4); Platelet Count 311 10^3/uL (150-450)
[2018-09-12 05:32] LABS: BUN/Creatinine Ratio 20.9 (8-20); Calcium 8.8 mg/dL (8.6-10.3); EGFR African American 103.3 (>60); EGFR Non-African American 85.3 (>60); Potassium 4.1 mmol/L (3.5-5.0)
[2018-09-12] MEDS: ceFAZolin 1 GM ADVAN(*) 1 GM in NS 0.9% 50 ML* 50 ML IVPB SCH ×2 (06:00→15:05)
[2018-09-12] MEDS: Lactated Ringers 1000 ML Bag* 1,000 ML IV SCH (06:01)
[2018-09-12] MEDS ORDERED: Hydrochlorothiazide TAB* 25 MG PO SCH (08:42)
[2018-09-12] MEDS: Apixaban* 2.5 MG TAB PO SCH ×2 (09:00→21:10)
[2018-09-12] MEDS: Vitamin THERAPEUTIC TAB PO SCH (09:01)
[2018-09-12] MEDS: Docusate CAP* 100 MG PO SCH ×2 (09:01→21:11)
[2018-09-12] MEDS: Magnesium Hydroxide LIQ* 30 ML UDC PO SCH ×2 (09:01→21:11)
[2018-09-12] MEDS ORDERED: Scopolamine 1.5 mg* PATCH TRANSDERM SCH (11:00)
--- NOTE | 2018-09-12 12:08 | PN ---
Subjective Date of Service: 09/12/18 Interval History: HOSPITALIST PROGRESS NOTE Patient seen and examined at bedside, Care reviewed and d/w Fracisco Waddell RN. She feels well today. Pain is fairly controlled. Feels she has a good support system at home (one daughter is a RN and the other is OT). Family History: Unchanged from Admission - non-contributory Social History: Unchanged from Admission - denies smoking, ETOH or alcohol use Past Medical History: Unchanged from Admission - RA, OA, HTN Objective Active Medications: Acetaminophen (Tylenol Tab*) 650 mg PO Q6H PRN PRN Reason: PAIN OR TEMPERATURE Apixaban (Eliquis*) 2.5 mg PO BID [facility] Last Admin: 09/12/18 09:00 Dose: 2.5 mg Bisacodyl (Dulcolax Supp*) 10 mg [place] DAILY PRN PRN Reason: constipation Bupropion HCl (Bupropion Xl*) 300 mg PO QPM [facility] Last Admin: 09/11/18 21:07 Dose: 300 mg Cyclobenzaprine HCl (Flexeril Tab*) 5 mg PO TID PRN PRN Reason: SPASMS Last Admin: 09/12/18 10:59 Dose: 5 mg Diphenhydramine HCl (Benadryl Iv*) 25 mg IV Q6H PRN PRN Reason: itching Docusate Sodium (Colace Cap*) 100 mg PO BID [facility] Last Admin: 09/12/18 09:01 Dose: 100 mg Hydrochlorothiazide (Hydrodiuril Tab*) 12.5 mg PO QPM [facility] Cefazolin Sodium 1 gm/ Sodium (Chloride) 50 mls @ 200 mls/hr IVPB Q8H [facility] Stop: 09/12/18 14:44 Last Admin: 09/12/18 06:00 Dose: 200 mls/hr Lactated Ringer's (Lactated Ringers 1000 Ml Bag*) 1,000 mls @ 100 mls/hr IV PER RATE [facility] Last Admin: 09/12/18 06:01 Dose: 100 mls/hr Lactulose (Lactulose*) 30 ml PO Q6H PRN PRN Reason: constipation Lisinopril (Prinivil Tab*) 20 mg PO QPM [facility] Magnesium Hydroxide (Milk Of Magnesia Liq*) 30 ml PO BID [facility] Last Admin: 09/12/18 09:01 Dose: 30 ml Magnesium Hydroxide (Milk Of Magnesia Liq*) 30 ml PO Q6H PRN PRN Reason: constipation Morphine Sulfate (Morphine 4 Mg/Ml Vial (1 Ml)) 2 mg IV Q2H PRN PRN Reason: PAIN Last Admin: 09/11/18 23:07 Dose: 2 mg Multivitamins (Theragran Tab*) 1 tab PO DAILY [facility] Last Admin: 09/12/18 09:01 Dose: 1 tab Ondansetron HCl (Zofran Inj*) 4 mg IV Q6H PRN PRN Reason: nausea Last Admin: 09/12/18 08:33 Dose: 4 mg Oxycodone HCl (Roxycodone Tab*) 10 mg PO Q4H PRN PRN Reason: PAIN - SEVERE Last Admin: 09/12/18 01:54 Dose: 10 mg Oxycodone/Acetaminophen (Percocet 5/325 Tab*) 1 tab PO Q4H PRN PRN Reason: PAIN Last Admin: 09/11/18 18:40 Dose: 1 tab Oxycodone/Acetaminophen (Percocet 5/325 Tab*) 2 tab PO Q4H PRN PRN Reason: PAIN Last Admin: 09/12/18 08:59 Dose: 2 tab Pharmacy Profile Note (Scopolamine Patch Remove*) 1 note PATCH OFF Q72H [facility] Polyethylene Glycol/Electrolytes (Miralax*) 17 gm PO DAILY PRN PRN Reason: Constipation Scopolamine (Transderm-Scop 1.5 Mg Patch*) 1 patch TRANSDERM Q72H [facility] Last Admin: 09/12/18 10:54 Dose: 1 patch Vital Signs - 8 hr 09/12/18 09/12/18 09/12/18 04:19 04:59 05:27 Temperature Pulse Rate Respiratory 18 18 Rate Blood Pressure 102/54 (mmHg) O2 Sat by Pulse Oximetry 09/12/18 09/12/18 09/12/18 07:15 08:00 08:07 Temperature 97.9 F Pulse Rate 69 Respiratory 16 18 16 Rate Blood Pressure 98/56 (mmHg) O2 Sat by Pulse 99 99 Oximetry 09/12/18 09/12/18 09/12/18 08:59 10:55 10:59 Temperature Pulse Rate Respiratory 18 18 18 Rate Blood Pressure (mmHg) O2 Sat by Pulse Oximetry Appearance: Pleasant elderly lady sitting up in bed in NAD. Eyes: No Scleral Icterus Ears/Nose/Mouth/Throat: Mucous Membranes Moist Neck: Trachea Midline Respiratory: Symmetrical Chest Expansion and Respiratory Effort, Clear to Auscultation Cardiovascular: RRR - Normal S1 and S2, +SM Extremities: - - Cryo unit right knee. Calf is soft, good capillary refill, sensation intact Neurological: Alert and Oriented x 3, NL Muscle Strength and Tone Result Diagrams: 09/12/18 04:54 09/12/18 04:54 Assess/Plan/Problems-Billing Assessment: Mrs Vang is a 77yo F with PMH of RA, HTN, GERD, hiatal hernia, s/p left TKA, osteoarthritis, admitted for elective right TKA with Dr Brewster. Hospitalist service consulted for comorbidities management. - Patient Problems (1) Status post total left knee replacement Comment: - Management as per Ortho. - PT consult. - May benefit of PMRU, but she also feels very supported by her family members, so may be able to go home. (2) HTN (hypertension) Comment: - BP on the lower side of normal. - Continue IVF. - Holding parameters on Lisinopril and HCTZ. (3) GERD (gastroesophageal reflux disease) Comment: - Continue Omeprazole. (4) Rheumatoid arthritis Comment: - Resume Orencia and MTX as outpatient. (5) DVT prophylaxis Comment: - Eliquis as per Ortho. (6) Full code status Status and Disposition: Hospitalist service will continue to follow with you.
[2018-09-12] MEDS ORDERED: Pantoprazole TAB * 40 MG TAB PO PRN (12:21)
[2018-09-12] MEDS ORDERED: Ketorolac INJ* 15 MG/ML 1 ML VIAL IV PUSH PRN (14:58)
[2018-09-12] MEDS: Morphine 4 MG/ML VIAL (1 ml) 4 MG/ML VIAL IV PRN (15:01)
[2018-09-12] MEDS: BuPROPion XL* 300 MG TAB.XL PO SCH (17:34)
[2018-09-12] MEDS: Morphine TAB Extended Release (*) 15 MG TAB.ER PO SCH (18:00)
[2018-09-12] MEDS ORDERED: Lisinopril TAB* 10 MG PO SCH (18:00)
--- NOTE | 2018-09-12 18:07 | PN ---
Progress Note - Progress Note Date of Service: 09/12/18 SOAP: Subjective: []Pt seen and examined at bedside. She feels well without chest pain, shortness of breath, dizziness or nausea. She has had difficulty with pain control. Objective: []General: Appears well, NAD RLE: right knee dressing CDI, thigh soft, DF/PF intact, DP2+, sensation intact to light touch distally Calves supple and nontender without erythema, edema or palpable cords Assessment: []POD 1 SP LTK Plan: []WBAT PT/OT eliquis 2.5 mg po BID toradol ordered. MS contin 15 mg PO q 12 hours ordered, Discussed decreasing short acting narcotic use and monitor for sedation with nursing Vital Signs Temp 98.1 F 09/12/18 14:58 Pulse 78 09/12/18 17:31 Resp 18 09/12/18 18:00 BP 103/53 09/12/18 17:31 Pulse Ox 100 09/12/18 14:58 Intake & Output 09/11/18 09/12/18 09/12/18 18:59 06:59 18:59 Intake Total 2240 1820 1289 Output Total 575 800 350 Balance 1665 1020 939 Weight 154 lb Intake: IV Fluids 1999 1100 1049 ABX - CEFAZOLIN 110 110 LR 2000 990 939 Oral 240 720 240 Output: Urine 250 Acosta 425 750 Emesis 50 100 Estimated Blood Loss 150 Other: # Bowel Movements 0 Laboratory Last Values Hgb 11.5 g/dL (12.0-16.0) L 09/12/18 04:54 Hct 35 % (35-47) 09/12/18 04:54 Plt Count 311 10^3/uL (150-450) 09/12/18 04:54 MPV 7.2 fL (7.4-10.4) L 09/12/18 04:54 Sodium 134 mmol/L (135-145) L 09/12/18 04:54 Potassium 4.1 mmol/L (3.5-5.0) 09/12/18 04:54 Chloride 100 mmol/L (101-111) L 09/12/18 04:54 Carbon Dioxide 28 mmol/L (22-32) 09/12/18 04:54 Anion Gap 6 mmol/L (2-11) 09/12/18 04:54 BUN 14 mg/dL (6-24) 09/12/18 04:54 Creatinine 0.67 mg/dL (0.51-0.95) 09/12/18 04:54 Est GFR ( Amer) 103.3 (>60) 09/12/18 04:54 Est GFR (Non-Af Amer) 85.3 (>60) 09/12/18 04:54 BUN/Creatinine Ratio 20.9 (8-20) H 09/12/18 04:54 Glucose 166 mg/dL (70-100) H 09/12/18 04:54 Calcium 8.8 mg/dL (8.6-10.3) 09/12/18 04:54
[2018-09-13] MEDS: oxyCODONE/Acetamin 5/325 MG* TAB PO PRN ×4 (01:32→16:31)
[2018-09-13] MEDS: Morphine TAB Extended Release (*) 15 MG TAB.ER PO SCH (05:36)
[2018-09-13 06:09] LABS: Hematocrit 32 % (35-47); Mean Platelet Volume 7.4 fL (7.4-10.4); Platelet Count 306 10^3/uL (150-450)
[2018-09-13] MEDS: Magnesium Hydroxide LIQ* 30 ML UDC PO SCH (08:35)
[2018-09-13] MEDS: Vitamin THERAPEUTIC TAB PO SCH (08:35)
[2018-09-13] MEDS: Apixaban* 2.5 MG TAB PO SCH (08:36)
[2018-09-13] MEDS: Docusate CAP* 100 MG PO SCH (08:36)
--- NOTE | 2018-09-13 14:07 | PN ---
Progress Note - Progress Note Date of Service: 09/13/18 SOAP: Subjective: []Pt seen at bedside as well as later in the afternoon while working with PT. She desires DC home, she has 24/10 support with a daughter who is a nurse and another daughter who is an OT to take care of her. Denies CP, SOB, dizziness, nausea. Objective: []General: Appears well, NAD RLE: right knee dressing changed, incision CDI, thigh soft, DF/PF intact, DP2+, sensation intact to light touch distally Calves supple and nontender without erythema, edema or palpable cords Assessment: []POD 2 SP LTK Plan: []WBAT PT/OT eliquis 2.5 mg po BID Daughter will be with patient 24/10, she strongly desires to go home, refuses ADRIANO. Vital Signs Temp 99 F 09/13/18 11:22 Pulse 78 09/13/18 11:22 Resp 18 09/13/18 12:40 BP 117/64 09/13/18 11:22 Pulse Ox 100 09/13/18 11:22 Intake & Output 09/12/18 09/13/18 09/13/18 18:59 06:59 18:59 Intake Total 1289 640 690 Output Total 933 045 1540 Balance 939 -210 -510 Intake: IV Fluids 1049 460 ABX - CEFAZOLIN 110 LR 939 460 Oral 240 640 230 Output: Urine 257 944 5363 Emesis 100 Other: # Bowel Movements 0 Laboratory Last Values Hgb 11.0 g/dL (12.0-16.0) L 09/13/18 05:56 Hct 32 % (35-47) L 09/13/18 05:56 Plt Count 306 10^3/uL (150-450) 09/13/18 05:56 MPV 7.4 fL (7.4-10.4) 09/13/18 05:56 Sodium 134 mmol/L (135-145) L 09/12/18 04:54 Potassium 4.1 mmol/L (3.5-5.0) 09/12/18 04:54 Chloride 100 mmol/L (101-111) L 09/12/18 04:54 Carbon Dioxide 28 mmol/L (22-32) 09/12/18 04:54 Anion Gap 6 mmol/L (2-11) 09/12/18 04:54 BUN 14 mg/dL (6-24) 09/12/18 04:54 Creatinine 0.67 mg/dL (0.51-0.95) 09/12/18 04:54 Est GFR ( Amer) 103.3 (>60) 09/12/18 04:54 Est GFR (Non-Af Amer) 85.3 (>60) 09/12/18 04:54 BUN/Creatinine Ratio 20.9 (8-20) H 09/12/18 04:54 Glucose 166 mg/dL (70-100) H 09/12/18 04:54 Calcium 8.8 mg/dL (8.6-10.3) 09/12/18 04:54
--- NOTE | 2018-09-13 14:46 | DS ---
Orthopedic Discharge Summary - Discharge Summary Date of Admission:09/11/18 Date of Discharge: 09/13/18 Date of Surgery: 09/11/18 Attending Orthopedic Provider: Dr Brewster Pre-operative Diagnosis: left knee osteoarthritis Operative Procedure: left total knee replacement Disposition of Patient: home Condition of Patient: stable History: ARMANDO HERNANDES is a 77 year old F with years of increasingly severe left knee pain. Patient has failed conservative management and has elected to undergo a left total knee replacement Hospital Course: ARMANDO was admitted to [facility] on 09/11/18. Patient underwent a left total knee replacement without complication followed by a brief recovery in PACU and transfer to the Short Stay Surgical Unit in stable condition. Our hospitalist service, physical therapy and occupational therapy also participated in this patients care. Post-op day 1: patient was alert and in no acute distress. Dressing was clean, dry and intact. Operative extremity dorsiflexion and plantarflexion intact, sensation intact to light touch distally, DP2+. Post-op day two: dressing was changed, incision was clean , dry and intact. Patient was deemed to be medically and orthopedically stable for discharge. Patient was offered ADRIANO but due to strong support from family she refused rehab and desired DC home. PT worked with patient with her daughter present to identify areas of need. Home Medications Medication Instructions Recorded Confirmed Type BuPROPion XL* Bupropion XL* 300 mg PO QPM 07/02/15 09/11/18 History Folic Acid TAB* [Folvite TAB*] 1 mg PO QAM 07/02/15 09/11/18 History Lisinopril/HCTZ 20/12.5(NF) 1 tab PO QPM 07/02/15 09/11/18 History [Zestoretic 20/12.5(NF)] Methotrexate TAB* 17.5 mg PO WEEKLY 07/02/15 09/11/18 History Abatacept* [Orencia*] 125 mg INJ WEEKLY 10/18/17 09/11/18 History Gabapentin CAP(*) [Neurontin 300 300 mg PO QPM 10/18/17 09/11/18 History CAP(*)] Acetaminophen [Tylenol Arthritis] 1,300 mg PO DAILY PRN 08/29/18 09/11/18 History Ascorbic Acid [Vitamin C] 1,000 mg PO QAM 08/29/18 09/11/18 History Biotin 10 mg PO QAM 08/29/18 09/11/18 History Cholecalciferol TAB* [Vitamin D 2,000 units PO QAM 08/29/18 09/11/18 History TAB*] Glucosamine/MSM/Chondroitin A 1 tab PO QAM 08/29/18 09/11/18 History [Zvcraudmtya-Pbcmi-NOH Caplet] Iron 65 mg PO QAM 08/29/18 09/11/18 History Lutein 40 mg PO QAM 08/29/18 09/11/18 History Omeprazole 20 mg PO DAILY PRN 08/29/18 09/11/18 History Vitamin B12 TAB* 1 tab PO QAM 08/29/18 09/11/18 History Acetaminophen TAB* [Tylenol TAB*] 650 mg PO Q6H PRN tab 09/13/18 Rx Apixaban* [Eliquis*] 2.5 mg PO BID #60 tab 09/13/18 Rx Docusate CAP* [Colace Cap*] 100 mg PO BID #90 cap 09/13/18 Rx Morphine TAB Extended Rel(*) [Ms 15 mg PO Q12H PRN #6 tab.er MDD 2 09/13/18 Rx Contin(*)] oxyCODONE/Acetamin 5/325 MG* 1 tab PO Q4H PRN tab MDD 10 09/13/18 Rx [Percocet 5/325 TAB*] oxyCODONE/Acetamin 5/325 MG* 2 tab PO Q4H PRN #70 tab MDD 10 09/13/18 Rx [Percocet 5/325 TAB*] Discharge Instructions following Orthopedic Surgery: Activity: * Weight Bearing as tolerated * Continue physical therapy and occupational therapy exercises as shown * Home physical therapy * Change positions slowly, take your time to get your balance before walking. Caretakers must be with you to ambulate at all times. Wear gait belt and use your walker. Wound care: * OK to shower on post-op day 3, no bathing, swimming, or submerging wound. * Use gentle soap, pat dry. Cover with gauze, DI wrap or tape. * Visiting home nurse to do wound checks. Call Orthopedic office for: * Increased drainage * Redness * Increased pain * Fever Go to ER with shortness of breath or chest pain. Diet: * Regular diet * Increase fluids and fiber to prevent constipation. * Continue to use stool softeners, call office if no bowel motion within 48 hours. Medications See Home Medication List in your packet for medications that you should take after discharge. DVT Prophylaxis: Eliquis Dosin.5 mg, 1 tab every 12 hours x 30 days. This medication increases bleeding tendency Pain Control: MS contin 15 mg 1 tab every 12 hours as needed for pain. Given a 3 day supply. Please use only as long as you are experiencing severe pain. You can take percocet in between doses as needed. If you are sedated please hold both percocet and MS contin. Percocet Dosin/325 mg 1-2 tabs by mouth every 4-6 hours as needed for pain. Maximum of 10 tabs per day. Use only as much as needed, hold for sedation. Wean off as soon as pain allows Please note that Percocet contains Tylenol (acetaminophen). Maximum daily dose of Tylenol is 4000 mg from all sources. Antibiotics are required prior to any dental work. FOLLOW UP: Follow up with [Ney] Within 10-14 days, call for appointment Please call our office with any questions or concerns ([phone])
--- NOTE | 2018-09-13 15:24 | PN ---
Subjective Date of Service: 09/13/18 Interval History: HOSPITALIST PROGRESS NOTE Patient seen and examined at bedside. Care reviewed and d/w Bairon Yap RN. She c/o mild nausea, pain is still 4/10, but overall feels improved. She thinks she has a lot of support at home. Family History: Unchanged from Admission - non-contributory Social History: Unchanged from Admission - denies smoking, ETOH or alcohol use Past Medical History: Unchanged from Admission - RA, OA, HTN Objective Active Medications: Acetaminophen (Tylenol Tab*) 650 mg PO Q6H PRN PRN Reason: PAIN OR TEMPERATURE Apixaban (Eliquis*) 2.5 mg PO BID [facility] Last Admin: 09/13/18 08:36 Dose: 2.5 mg Bisacodyl (Dulcolax Supp*) 10 mg OH DAILY PRN PRN Reason: constipation Bupropion HCl (Bupropion Xl*) 300 mg PO QPM [facility] Last Admin: 09/12/18 17:34 Dose: 300 mg Cyclobenzaprine HCl (Flexeril Tab*) 5 mg PO TID PRN PRN Reason: SPASMS Last Admin: 09/12/18 10:59 Dose: 5 mg Diphenhydramine HCl (Benadryl Iv*) 25 mg IV Q6H PRN PRN Reason: itching Docusate Sodium (Colace Cap*) 100 mg PO BID [facility] Last Admin: 09/13/18 08:36 Dose: 100 mg Hydrochlorothiazide (Hydrodiuril Tab*) 12.5 mg PO QPM [facility] Last Admin: 09/12/18 17:32 Dose: Not Given Lactated Ringer's (Lactated Ringers 1000 Ml Bag*) 1,000 mls @ 100 mls/hr IV PER RATE [facility] Last Admin: 09/12/18 06:01 Dose: 100 mls/hr Ketorolac Tromethamine (Toradol Inj*) 15 mg IV PUSH Q6H PRN PRN Reason: PAIN Last Admin: 09/12/18 17:39 Dose: 15 mg Lactulose (Lactulose*) 30 ml PO Q6H PRN PRN Reason: constipation Lisinopril (Prinivil Tab*) 20 mg PO QPM [facility] Last Admin: 09/12/18 17:33 Dose: Not Given Magnesium Hydroxide (Milk Of Magnesia Liq*) 30 ml PO BID [facility] Last Admin: 09/13/18 08:35 Dose: 30 ml Magnesium Hydroxide (Milk Of Magnesia Liq*) 30 ml PO Q6H PRN PRN Reason: constipation Morphine Sulfate (Morphine 4 Mg/Ml Vial (1 Ml)) 2 mg IV Q2H PRN PRN Reason: PAIN Last Admin: 09/12/18 15:01 Dose: 2 mg Morphine Sulfate (Ms Contin(*)) 15 mg PO Q12H [facility] Last Admin: 09/13/18 05:36 Dose: 15 mg Multivitamins (Theragran Tab*) 1 tab PO DAILY [facility] Last Admin: 09/13/18 08:35 Dose: 1 tab Ondansetron HCl (Zofran Inj*) 4 mg IV Q6H PRN PRN Reason: nausea Last Admin: 09/12/18 15:09 Dose: 4 mg Oxycodone HCl (Roxycodone Tab*) 10 mg PO Q4H PRN PRN Reason: PAIN - SEVERE Last Admin: 09/12/18 01:54 Dose: 10 mg Oxycodone/Acetaminophen (Percocet 5/325 Tab*) 1 tab PO Q4H PRN PRN Reason: PAIN Last Admin: 09/11/18 18:40 Dose: 1 tab Oxycodone/Acetaminophen (Percocet 5/325 Tab*) 2 tab PO Q4H PRN PRN Reason: PAIN Last Admin: 09/13/18 12:40 Dose: 2 tab Pantoprazole Sodium (Protonix Tab*) 40 mg PO DAILY PRN PRN Reason: HEARTBURN Pharmacy Profile Note (Scopolamine Patch Remove*) 1 note PATCH OFF Q72H [facility] Polyethylene Glycol/Electrolytes (Miralax*) 17 gm PO DAILY PRN PRN Reason: Constipation Scopolamine (Transderm-Scop 1.5 Mg Patch*) 1 patch TRANSDERM Q72H [facility] Last Admin: 09/12/18 10:54 Dose: 1 patch Vital Signs - 8 hr 09/13/18 09/13/18 09/13/18 07:23 07:41 08:00 Temperature 98.2 F Pulse Rate 83 Respiratory 16 18 18 Rate Blood Pressure 107/59 (mmHg) O2 Sat by Pulse 95 95 Oximetry 09/13/18 09/13/18 09/13/18 08:35 11:22 11:42 Temperature 99 F Pulse Rate 78 Respiratory 18 16 20 Rate Blood Pressure 117/64 (mmHg) O2 Sat by Pulse 100 Oximetry 09/13/18 09/13/18 12:40 15:12 Temperature Pulse Rate Respiratory 18 18 Rate Blood Pressure (mmHg) O2 Sat by Pulse Oximetry Oxygen Devices in Use Now: None Appearance: Elderly lady sitting up in a recliner in NAD. Eyes: No Scleral Icterus Ears/Nose/Mouth/Throat: Mucous Membranes Moist Neck: Trachea Midline Respiratory: Symmetrical Chest Expansion and Respiratory Effort, Clear to Auscultation Cardiovascular: RRR - Normal S1 and S2, +SM Extremities: - - Cryo unit right knee, no calf tenderness, sensation intact Neurological: Alert and Oriented x 3, NL Muscle Strength and Tone Result Diagrams: 09/13/18 05:56 09/12/18 04:54 Assess/Plan/Problems-Billing Assessment: This is a 77 year old female with history or OA/RA that presented for elective TKA: 1. S/P LTKA - POC as per Orthopedics - Pain control, bowel regimen - OOB with PT/OT - DVT prophylaxis with eliquis to start at noon tomorrow 2. HTN - BP stable, consider starting DI/HCTZ tomorrow 3. Hx of RA - Holding methotrexate and orencia VTE PPX: - Eliquis 2.5 mg PO BID Diet: - Regular as tolerated Code Status: - Full Admission Status and Rationale: - Inpatient, dispo as per orthopedics. Thank you for the courtesy of this consult. Will continue to follow the patient will you. - Patient Problems (1) Status post total left knee replacement Comment: - Management as per Ortho. - PT consult appreciated. - May benefit of PMRU, but she also feels very supported by her family members, so may be able to go home. (2) HTN (hypertension) Comment: - BP on the lower side of normal. - Holding parameters on Lisinopril and HCTZ. (3) GERD (gastroesophageal reflux disease) Comment: - Continue Omeprazole. (4) Rheumatoid arthritis Comment: - Resume Orencia and MTX as outpatient. (5) DVT prophylaxis Comment: - Eliquis as per Ortho. (6) Full code status Status and Disposition: Hospitalist service will continue to follow with you.
[2018-09-13 18:19] VITALS: BP 130/66
[2018-09-15] MEDS ORDERED: Scopolamine PATCH Remove* 1 NOTE MISC PATCH OFF SCH (11:00)
== END 2018-09-13 16:40 | disposition home health service (06) | DRG 470 ==
LOC: AA 12:13 → SSU 16:29
PROVIDERS: ADMIT Orthopaedic Surgery Adult Reconstructive Orthopaedic Surgery; ATTEND Orthopaedic Surgery Adult Reconstructive Orthopaedic Surgery
PROC: 0SRC069 Replacement of Right Knee Joint with Oxidized Zirconium on Polyethylene Synthetic Substitute, Cemented, Open Approach (ICD-10-PCS; principal; 2018-09-11 15:00)
DX: M17.11 Unilateral primary osteoarthritis, right knee (principal); M06.9 Rheumatoid arthritis, unspecified; I10 Essential (primary) hypertension; K21.9 Gastro-esophageal reflux disease without esophagitis; K44.9 Diaphragmatic hernia without obstruction or gangrene; M25.761 Osteophyte, right knee; M25.461 Effusion, right knee; F32.9 Major depressive disorder, single episode, unspecified; G62.9 Polyneuropathy, unspecified; R51 Headache; Z96.652 Presence of left artificial knee joint; R11.0 Nausea; Z82.49 Family history of ischemic heart disease and other diseases of the circulatory system; Z90.710 Acquired absence of both cervix and uterus; Z98.51 Tubal ligation status; Z83.3 Family history of diabetes mellitus; Z80.0 Family history of malignant neoplasm of digestive organs; Z87.891 Personal history of nicotine dependence
CPT/HCPCS: 36415; 80048; 85014; 85018; 85049; 88305; 88311; A9270-GY; C1776; G8978-GP-CK; G8979-GP-CI; J0690; J1100; J1170; J1885; J2250; J2270; J2405; J2704; J2795; J3010; J3490